=== PATIENT | female | born 1965 | race Two or more races ===

== ENCOUNTER 2016-05-17 05:09 | Emergency (ER) | payer MEDICAID ==
[~2016-05-17] VITALS: Ht 157.5 cm; Wt 130.2 kg
[~2016-05-17 05:09] MED LIST: GAB400C PO; GLIP-115 PO; HYDR-2601 PO; INSUINJ37 SUBCUT; LISI10TA6; LORA1TAB12 PO; METF-312 PO; OMEPRAZOLE 20MG CAPSULES; SIMV-8
[2016-05-17 05:53] LABS: Basophils # (auto) 0.1 uL; Basophils % (auto) 0.6 % (0.0-2.0); DEFINITIVE VIEW TRANSMISSION; Eosinophils # (auto) 1.4 uL; Eosinophils % (auto) 9.6 % (0.0-7.0); Hematocrit 49.1 % (36.0-46.0); Hemoglobin 16.1 g/dL (12.2-16.2); Lymphocytes # (auto) 2.7 uL; Lymphocytes % (auto) 18.3 % (10.0-50.0); Mean Corpuscular Hemoglobin 28.3 pg (28.0-32.0); Mean Corpuscular Hgb Conc. 32.7 g/dL (32.0-36.0); Mean Corpuscular Volume 86.4 fL (80.0-100.0); Mean Platelet Volume 8.9 fL (7.4-10.4); Monocytes # (auto) 1.1 uL; Monocytes % (auto) 7.5 % (0.0-12.0); Neutrophils # (auto) 9.6 uL; Platelet Count (auto) 312 10^3/uL (140-450); Red Cell Distribution Width 15.3 % (11.6-16.0)
[2016-05-17 06:08] LABS: Albumin 3.5 g/dL (3.4-5.0); Anion Gap 10 (5-15); Calcium 8.6 mg/dL (8.5-10.1); Carbon Dioxide 24 mmol/L (21-32); Chloride 107 mmol/L (98-107); Potassium 4.2 mmol/L (3.5-5.1); Sodium 141 mmol/L (136-145)
[2016-05-17 06:12] LABS: Aspartate Aminotransferase 19 U/L (15-37); BUN/Creatinine Ratio 13.9; Blood Urea Nitrogen 11 mg/dL (7-18); GFR African American 98 mL/min; GFR Non-African American 81 mL/min; Glucose 172 mg/dL (74-106)
[2016-05-17 06:16] LABS: Alkaline Phosphatase 151 U/L (45-117); Bilirubin, Total 0.3 mg/dL (0.2-1.0); Total Protein 7.3 g/dL (6.4-8.2)
[2016-05-17] MEDS ORDERED: ALBUTEROL SULF 2.5 MG/0.5ML(0.5%) NEB SOLN HHN STA (06:18)
[2016-05-17] MEDS ORDERED: IPRATROPIUM BROM 0.5 MG/2.5ML INH SOL NEB ONE ×2 (06:30→10:00)
[2016-05-17 09:21] VITALS: BP 122/73
[2016-05-17] MEDS ORDERED: ALBUTEROL SULF 2.5 MG/0.5ML(0.5%) NEB SOLN NEB ONE (10:00)
[2016-05-17] MEDS ORDERED: LEVOFLOXACIN 500MG 100 ML IV ONE (10:00)
== END 2016-05-17 13:38 | disposition home or self-care (01) ==
LOC: EDBD 05:09 → ER 05:15
DX: J44.1 Chronic obstructive pulmonary disease with (acute) exacerbation (principal); F17.210 Nicotine dependence, cigarettes, uncomplicated; E11.9 Type 2 diabetes mellitus without complications; I10 Essential (primary) hypertension; K21.9 Gastro-esophageal reflux disease without esophagitis; E78.5 Hyperlipidemia, unspecified; Z85.9 Personal history of malignant neoplasm, unspecified
CPT/HCPCS: 36415; 71010; 80053; 84484; 85025; 87040; 93005; 94640; 94761; 96365; 99285; J1956

== ENCOUNTER 2016-09-23 05:53 | Emergency (ER) | payer MEDICAID ==
[~2016-09-23] VITALS: Ht 157.5 cm; Wt 123.4 kg
[~2016-09-23 05:53] MED LIST changes: -METF-312 PO; +METF-370 PO
[2016-09-23] MEDS ORDERED: ASPirin 81 mg TAB PO ONE (06:45)
[2016-09-23 07:41] LABS: Basophils # (auto) 0.1 uL; Basophils % (auto) 0.7 % (0.0-2.0); CONDITION Y; DEFINITIVE SEE PRINTOUT; Eosinophils # (auto) 1.2 uL; Eosinophils % (auto) 8.7 % (0.0-7.0); Hemoglobin 17.3 g/dL (12.2-16.2); Lymphocytes # (auto) 2.7 uL; Lymphocytes % (auto) 18.7 % (10.0-50.0); Mean Corpuscular Hemoglobin 28.6 pg (28.0-32.0); Mean Corpuscular Hgb Conc. 33.3 g/dL (32.0-36.0); Mean Corpuscular Volume 86.2 fL (80.0-100.0); Monocytes % (auto) 7.3 % (0.0-12.0); Neutrophils # (auto) 9.2 uL; Neutrophils % (auto) 64.6 % (37.0-80.0); Platelet Count (auto) 293 10^3/uL (140-450); Red Cell Distribution Width 15.5 % (11.6-16.0); SUSPECT SEE PRINTOUT; White Blood Cell 14.2 10^3/uL (4.4-10.8)
[2016-09-23 08:16] LABS: INR 0.97 (0.9-1.15); Partial Thromboplastin Time 22.6 sec (22.64-33.71); Prothrombin Time 10.6 sec (9.37-12.3)
[2016-09-23 08:18] LABS: Albumin 3.4 g/dL (3.4-5.0); Alkaline Phosphatase 126 U/L (45-117); Anion Gap 13 (5-15); Aspartate Aminotransferase 58 U/L (15-37); BUN/Creatinine Ratio 20.8; Bilirubin, Total 0.5 mg/dL (0.2-1.0); Blood Urea Nitrogen 16 mg/dL (7-18); Calcium 8.7 mg/dL (8.5-10.1); Carbon Dioxide 20 mmol/L (21-32); Chloride 102 mmol/L (98-107); GFR African American 101 mL/min; GFR Non-African American 83 mL/min; Glucose 111 mg/dL (74-106); Magnesium 2.1 mg/dL (1.6-2.6); Potassium 3.4 mmol/L (3.5-5.1); Sodium 135 mmol/L (136-145); Total Protein 6.8 g/dL (6.4-8.2)
[2016-09-23 08:31] VITALS: BP 114/72
== END 2016-09-23 08:45 | disposition home or self-care (01) ==
LOC: ER 05:57
DX: R07.89 Other chest pain (principal); E66.01 Morbid (severe) obesity due to excess calories; Z68.42 Body mass index [BMI] 45.0-49.9, adult; K21.9 Gastro-esophageal reflux disease without esophagitis; J44.9 Chronic obstructive pulmonary disease, unspecified; I10 Essential (primary) hypertension; E11.9 Type 2 diabetes mellitus without complications; E78.5 Hyperlipidemia, unspecified; Z90.49 Acquired absence of other specified parts of digestive tract; Z98.51 Tubal ligation status; Z85.41 Personal history of malignant neoplasm of cervix uteri; F17.210 Nicotine dependence, cigarettes, uncomplicated; Z79.4 Long term (current) use of insulin; Z88.0 Allergy status to penicillin; Z88.2 Allergy status to sulfonamides
CPT/HCPCS: 36415; 71020; 80053; 83735; 84484; 85025; 85610; 85730; 93005; 94761

== ENCOUNTER 2020-11-19 05:25 | Emergency (ER) | payer MEDICAID ==
[~2020-11-19] VITALS: Ht 157.5 cm; Wt 109.8 kg
[~2020-11-19 05:25] MED LIST changes: -GLIP-115 PO; +GLIP5TAB12 PO; +LISI-716; -LISI10TA6; -LORA1TAB12 PO; +LORA1TAB23 PO
[2020-11-19 06:49] LABS: Basophils # (auto) 0.1 10 ^3/uL (0-0.2); Basophils % (auto) 1.2 % (0.0-2.0); Eosinophils # (auto) 0.6 10 ^3/uL (0-0.8); Eosinophils % (auto) 4.8 % (0.0-7.0); Hematocrit 43.9 % (36.0-46.0); Hemoglobin 14.8 g/dL (12.2-16.2); Lymphocytes # (auto) 2.1 10 ^3/uL (0.4-5.4); Lymphocytes % (auto) 16.6 % (10.0-50.0); Mean Corpuscular Hemoglobin 29.3 pg (28.0-32.0); Mean Corpuscular Hgb Conc. 33.8 g/dL (32.0-36.0); Mean Corpuscular Volume 86.8 fL (80.0-100.0); Monocytes # (auto) 1.2 10 ^3/uL (0-1.3); Monocytes % (auto) 9.7 % (0.0-12.0); Neutrophils # (auto) 8.6 10 ^3/uL (1.6-8.6); Neutrophils % (auto) 67.7 % (37.0-80.0); Red Blood Cells 5.06 10^6/uL (4.0-5.20); Red Cell Distribution Width 14.3 % (11.8-14.3); White Blood Cell 12.6 10^3/uL (4.4-10.8)
[2020-11-19 07:00] LABS: Albumin 2.8 g/dL (3.4-5.0); Calcium 9.2 mg/dL (8.5-10.1); Potassium 3.9 mmol/L (3.5-5.1)
[2020-11-19 07:01] LABS: BUN/Creatinine Ratio 13.9
[2020-11-19 07:05] LABS: Bilirubin, Total 0.4 mg/dL (0.2-1.0)
[2020-11-19 08:00] VITALS: BP 153/75
== END 2020-11-19 08:28 | disposition home or self-care (01) ==
LOC: ER 05:25
DX: L03.115 Cellulitis of right lower limb (principal); J44.9 Chronic obstructive pulmonary disease, unspecified; E78.5 Hyperlipidemia, unspecified; I10 Essential (primary) hypertension; F17.210 Nicotine dependence, cigarettes, uncomplicated; Z90.49 Acquired absence of other specified parts of digestive tract; Z98.51 Tubal ligation status; Z90.89 Acquired absence of other organs; Z88.0 Allergy status to penicillin; Z88.2 Allergy status to sulfonamides; Z79.4 Long term (current) use of insulin; Z85.41 Personal history of malignant neoplasm of cervix uteri; Z79.899 Other long term (current) drug therapy
CPT/HCPCS: 36415; 80053; 85025; 93971

== ENCOUNTER 2022-10-02 22:26 | Inpatient (IN) | payer MEDICAID ==
[~2022-10-02] VITALS: Ht 154.9 cm; Wt 45.0 kg
[~2022-10-02 22:26] MED LIST changes: -LISI-716; +LISI10TA34; +LORA-1123 PO; -LORA1TAB23 PO; -SIMV-8; +SIMV20TA20
[2022-10-02 23:00] VITALS: PULSE 96; RESP 25; O2SAT 94
[2022-10-02] MEDS ORDERED: IPRATROPIUM BROM 0.5 MG/2.5ML INH SOL NEB ONE (23:00)
[2022-10-02] MEDS ORDERED: ALBUTEROL SULF 2.5 MG/0.5ML(0.5%) NEB SOLN NEB ONE (23:00)
[2022-10-02 23:14] LABS: Basophils # (auto) 0.2 10 ^3/uL (0-0.2); Basophils % (auto) 1.3 % (0.0-2.0); Eosinophils # (auto) 0.5 10 ^3/uL (0-0.8); Eosinophils % (auto) 3.5 % (0.0-7.0); Hematocrit 46.1 % (36.0-46.0); Hemoglobin 15.2 g/dL (12.2-16.2); Lymphocytes # (auto) 2.8 10 ^3/uL (0.4-5.4); Lymphocytes % (auto) 19.7 % (10.0-50.0); Mean Corpuscular Hemoglobin 28.3 pg (28.0-32.0); Mean Corpuscular Hgb Conc. 33.1 g/dL (32.0-36.0); Mean Corpuscular Volume 85.6 fL (80.0-100.0); Monocytes # (auto) 1.4 10 ^3/uL (0-1.3); Monocytes % (auto) 9.8 % (0.0-12.0); Neutrophils # (auto) 9.2 10 ^3/uL (1.6-8.6); Neutrophils % (auto) 65.7 % (37.0-80.0); Nucleated Red Blood Cells % 0.4 %; Red Blood Cells 5.38 10^6/uL (4.0-5.20); Red Cell Distribution Width 15.4 % (11.8-14.3)
[2022-10-02 23:31] LABS: INR 1.07 (0.9-1.15); Prothrombin Time 11.2 sec (9.3-11.8)
[2022-10-02 23:47] LABS: Albumin 3.2 g/dL (3.4-5.0); Calcium 8.4 mg/dL (8.5-10.1); Magnesium 2.2 mg/dL (1.6-2.6); Potassium 3.8 mmol/L (3.5-5.1)
[2022-10-02 23:50] LABS: BUN/Creatinine Ratio 14.1 (10.0-20.0); Bilirubin, Total 0.6 mg/dL (0.2-1.0)
[2022-10-03] VITALS (8 sets, daily range): BP systolic 184; BP diastolic 106; PULSE 80–100; RESP 17–29; TEMP 97.4–98.2; O2SAT 90–97
[2022-10-03] MEDS ORDERED: levoFLOXacin 500MG 100 ML IV ONE
[2022-10-03] MEDS ORDERED: DOCUSATE SOD 100 MG CAP PO PRN (01:30)
[2022-10-03] MEDS ORDERED: NITROGLYCERIN 0.4 MG SL TAB SL PRN (01:30)
[2022-10-03] MEDS ORDERED: MORPHINE SULFATE INJ 2 MG/ml SYRG IV PRN (01:30)
[2022-10-03] MEDS ORDERED: ACETAMINOPHEN 325 MG TAB PO PRN (01:30)
[2022-10-03] MEDS ORDERED: ONDANSETRON HCL 4 MG/2 ML VIAL IV PRN (01:30)
[2022-10-03] MEDS ORDERED: DEXTROSE (50%) 50ML SYRG IV PRN (01:30)
[2022-10-03] MEDS ORDERED: HYDROcodone-ACET 5/325MG TAB PO PRN (01:30)
[2022-10-03 01:48] LABS: COVID19 ANTIGEN SOFIA FIA NEGATIVE (NEGATIVE)
[2022-10-03 01:49] LABS: Rapid Influenza A Negative (Negative); Rapid Influenza B Negative (Negative)
[2022-10-03] MEDS ORDERED: hydrALAZINE HCL 20 MG/ML VL IV PRN (02:00)
[2022-10-03] MEDS ORDERED: amLODIPine BESYLATE 5 MG TAB PO ONE (02:00)
[2022-10-03] MEDS ORDERED: IOHEXOL 350 MG/ML 100ML IJ ONE (02:05)
[2022-10-03] MEDS: SODIUM CHLOR 0.9% PF (SALINE LOCK) 10ML VIAL/SYR IV SCH ×3 (05:40→23:06)
[2022-10-03 06:05] LABS: Basophils # (auto) 0.2 10 ^3/uL (0-0.2); Basophils % (auto) 1.2 % (0.0-2.0); Eosinophils # (auto) 0.4 10 ^3/uL (0-0.8); Eosinophils % (auto) 3.5 % (0.0-7.0); Hematocrit 47.2 % (36.0-46.0); Hemoglobin 15.1 g/dL (12.2-16.2); Lymphocytes # (auto) 1.9 10 ^3/uL (0.4-5.4); Lymphocytes % (auto) 15.5 % (10.0-50.0); Mean Corpuscular Hemoglobin 27.6 pg (28.0-32.0); Mean Corpuscular Hgb Conc. 32.1 g/dL (32.0-36.0); Mean Corpuscular Volume 86.1 fL (80.0-100.0); Monocytes # (auto) 1.3 10 ^3/uL (0-1.3); Monocytes % (auto) 10.7 % (0.0-12.0); Neutrophils # (auto) 8.6 10 ^3/uL (1.6-8.6); Neutrophils % (auto) 69.1 % (37.0-80.0); Red Blood Cells 5.47 10^6/uL (4.0-5.20); Red Cell Distribution Width 15.1 % (11.8-14.3); White Blood Cell 12.5 10^3/uL (4.4-10.8)
[2022-10-03 06:16] LABS: Potassium 3.8 mmol/L (3.5-5.1)
[2022-10-03 06:24] LABS: Albumin 3.2 g/dL (3.4-5.0); BUN/Creatinine Ratio 13.5 (10.0-20.0); Bilirubin, Total 0.8 mg/dL (0.2-1.0); Calcium 8.5 mg/dL (8.5-10.1); Total Protein 6.1 g/dL (6.4-8.2)
[2022-10-03] MEDS: ACCU-CHEK COMFORT CURVE STRIP VI SCH ×4 (07:22→23:17)
[2022-10-03] MEDS: InsuLIN REG 1unit/0.01ml Soln (100units/ml) SC SCH ×3 (07:32→17:13)
[2022-10-03 07:49] LABS: Urine Bacteria FEW /hpf (None Seen); Urine Blood Negative /uL (Negative); Urine Clarity Clear (Clear); Urine Color Yellow (Yellow); Urine Protein, UAD TRACE (Negative); Urine Urobilinogen Normal (Negative); Urine WBC 2 /hpf (0 - 5); Urine pH 6.5 (5.0-8.0)
[2022-10-03] MEDS ORDERED: ASPirin 81 mg TAB PO SCH (10:00)
[2022-10-03] MEDS: FAMOTIDINE (10MG/ML) 2ML VL IV SCH ×2 (10:28→23:04)
[2022-10-03] MEDS ORDERED: METOPROLOL TARTRATE 25 MG TAB PO SCH (13:30)
[2022-10-03 14:11] LABS: Cholesterol 156 mg/dL (< 200); HDL Cholesterol 46 mg/dL (40-59); LDL Cholesterol 97 mg/dL (< 100); Triglycerides 141 mg/dL (< 150)
[2022-10-03] MEDS: IPRATROPIUM BROM 0.5 MG/2.5ML INH SOL NEB PRN (14:19)
[2022-10-03] MEDS: ALBUTEROL SULF 2.5 MG/0.5ML(0.5%) NEB SOLN NEB PRN (14:19)
[2022-10-03] MEDS ORDERED: NICOTINE 21MG/24 HR TOPICAL PATCH TD SCH (15:00)
[2022-10-03] MEDS ORDERED: LABETALOL HCL 5 MG/ML 4ML SYRINGE IV PRN (15:00)
[2022-10-03] MEDS ORDERED: POTASSIUM CHL 20 Meq TABLET PO ONE (15:30)
[2022-10-03] MEDS ORDERED: FUROSEMIDE 20 MG/2 ML VIAL IV SCH (15:30)
[2022-10-03 16:13] LABS: Alcohol, Urine < 3.0 mg/dL (0-10); Amphetamine Screen, Urine POSITIVE (NEGATIVE); Barbiturate Scree,Urine NEGATIVE (NEGATIVE); Benzodiazephine Screen, Urine NEGATIVE (NEGATIVE); Cannabinoid Screen, Urine NEGATIVE (NEGATIVE); Cocaine Screen, Urine NEGATIVE (NEGATIVE)
[2022-10-03 16:21] LABS: Opiate Scree,Urine NEGATIVE (NEGATIVE); Phencyclidine Screen, Urine NEGATIVE (NEGATIVE)
[2022-10-03] MEDS ORDERED: levoFLOXacin 500MG 100 ML IV SCH (22:00)
[2022-10-03] MEDS ORDERED: ATORVASTATIN 20 MG TAB PO SCH (22:00)
[2022-10-03] MEDS ORDERED: CARVEDILOL 12.5 MG TAB PO SCH (22:00)
[2022-10-03] MEDS ORDERED: InsuLIN REG 1unit/0.01ml Soln (100units/ml) SC SCH (22:00)
[2022-10-04] MEDS ORDERED: MELATONIN 5 MG TAB ONE (01:28)
[2022-10-04] MEDS ORDERED: MELATONIN 5 MG TAB PO ONE ×2 (01:45→22:00)
[2022-10-04] MEDS ORDERED: diphenhdrAMINE HCL 50 MG/1 ML VL IV PRN (02:30)
[2022-10-04] MEDS: IPRATROPIUM BROM 0.5 MG/2.5ML INH SOL NEB PRN (02:38)
[2022-10-04] MEDS: ALBUTEROL SULF 2.5 MG/0.5ML(0.5%) NEB SOLN NEB PRN (02:38)
[2022-10-04 02:39] VITALS: PULSE 80; RESP 20; O2SAT 95
[2022-10-04 02:49] VITALS: PULSE 90; RESP 20; O2SAT 95
[2022-10-04 05:17] VITALS: BP 131/95; PULSE 89; RESP 21; O2SAT 95
[2022-10-04] MEDS: SODIUM CHLOR 0.9% PF (SALINE LOCK) 10ML VIAL/SYR IV SCH (06:05)
[2022-10-04 07:07] LABS: Potassium 4.3 mmol/L (3.5-5.1)
[2022-10-04 07:19] LABS: Albumin 3.1 g/dL (3.4-5.0); BUN/Creatinine Ratio 13.8 (10.0-20.0); Bilirubin, Total 0.5 mg/dL (0.2-1.0); Calcium 8.8 mg/dL (8.5-10.1); Total Protein 6.5 g/dL (6.4-8.2)
[2022-10-04 07:31] LABS: Basophils # (auto) 0.3 10 ^3/uL (0-0.2); Basophils % (auto) 2.4 % (0.0-2.0); Eosinophils # (auto) 0.7 10 ^3/uL (0-0.8); Eosinophils % (auto) 5.8 % (0.0-7.0); Hematocrit 46.9 % (36.0-46.0); Hemoglobin 15.3 g/dL (12.2-16.2); Lymphocytes # (auto) 1.9 10 ^3/uL (0.4-5.4); Lymphocytes % (auto) 15.8 % (10.0-50.0); Mean Corpuscular Hemoglobin 28.4 pg (28.0-32.0); Mean Corpuscular Hgb Conc. 32.7 g/dL (32.0-36.0); Mean Corpuscular Volume 86.8 fL (80.0-100.0); Monocytes # (auto) 1.3 10 ^3/uL (0-1.3); Monocytes % (auto) 10.6 % (0.0-12.0); Neutrophils # (auto) 7.9 10 ^3/uL (1.6-8.6); Neutrophils % (auto) 65.4 % (37.0-80.0); Nucleated Red Blood Cells % 0.1 %; Red Cell Distribution Width 14.9 % (11.8-14.3); White Blood Cell 12.1 10^3/uL (4.4-10.8)
[2022-10-04] MEDS ORDERED: amLODIPine BESYLATE 5 MG TAB PO SCH (10:00)
[2022-10-04] MEDS ORDERED: POTASSIUM CHL 20 Meq TABLET PO SCH (10:00)
== END 2022-10-04 07:52 | disposition left against medical advice (07) | DRG 199 ==
LOC: ER 22:26 → EDBD 22:26 → TELE 10-03 01:35
PROVIDERS: ADMIT Nurse Practitioner Family; ATTEND Nurse Practitioner Family
DX: I16.0 Hypertensive urgency (principal); J96.21 Acute and chronic respiratory failure with hypoxia; I21.A1 Myocardial infarction type 2; J44.1 Chronic obstructive pulmonary disease with (acute) exacerbation; E78.00 Pure hypercholesterolemia, unspecified; E66.01 Morbid (severe) obesity due to excess calories; K21.9 Gastro-esophageal reflux disease without esophagitis; E11.9 Type 2 diabetes mellitus without complications; J90 Pleural effusion, not elsewhere classified; I10 Essential (primary) hypertension; Z20.822 Contact with and (suspected) exposure to COVID-19; F17.210 Nicotine dependence, cigarettes, uncomplicated; N39.0 Urinary tract infection, site not specified; F41.9 Anxiety disorder, unspecified; Z68.1 Body mass index [BMI] 19.9 or less, adult; Z85.41 Personal history of malignant neoplasm of cervix uteri; Z80.3 Family history of malignant neoplasm of breast; Z90.49 Acquired absence of other specified parts of digestive tract; Z88.0 Allergy status to penicillin; Z88.2 Allergy status to sulfonamides; Z82.5 Family history of asthma and other chronic lower respiratory diseases; Z82.49 Family history of ischemic heart disease and other diseases of the circulatory system; Z90.13 Acquired absence of bilateral breasts and nipples; Z79.4 Long term (current) use of insulin; Z91.199 Patient's noncompliance with other medical treatment and regimen due to unspecified reason
CPT/HCPCS: 36415; 71275; 80053; 80061; 80307; 81001; 82962; 83036; 83605; 83735; 83880; 84443; 84484; 85025; 85379; 85610; 85730; 87040; 87426; 87804; 93005; 93306; 93970; 94640; G0378; J1815; J1956; J3490

== ENCOUNTER 2022-12-12 22:19 | Inpatient (IN) | payer MEDICAID, MEDICARE, OTHER ==
[~2022-12-12] VITALS: Ht 154.9 cm; Wt 112.4 kg
[2022-12-12 22:45] VITALS: PULSE 147; RESP 28; O2SAT 99
[2022-12-12] MEDS ORDERED: ALBUTEROL MEDNEB 2.5 mg/3ml NEB ONE (23:29)
[2022-12-12] MEDS ORDERED: IPRATROPIUM BROM 0.5 MG/2.5ML INH SOL NEB ONE (23:30)
[2022-12-12] MEDS ORDERED: methylPREDNISolone SOD SUCC 125 MG/2 ML VL IV ONE (23:30)
[2022-12-12] MEDS ORDERED: ALBUTEROL SULF 2.5 MG/0.5ML(0.5%) NEB SOLN NEB ONE (23:30)
[2022-12-12] MEDS ORDERED: LORazepam 2MG/ML-1ML VIAL IV ONE (23:30)
[2022-12-13] VITALS (8 sets, daily range): BP systolic 106–123; BP diastolic 61–78; PULSE 95–106; RESP 24–28; TEMP 98.9; O2SAT 93–96
[2022-12-13] MEDS ORDERED: AZITHROMYCIN 500MG/ 250ML 250 ML IV ONE
[2022-12-13 00:14] LABS: Basophils # (auto) 0.1 10 ^3/uL (0-0.2); Hemoglobin 15.8 g/dL (12.2-16.2); Monocytes # (auto) 1.5 10 ^3/uL (0-1.3); Neutrophils # (auto) 14.6 10 ^3/uL (1.6-8.6)
[2022-12-13 00:15] LABS: Basophils % (auto) 0.7 % (0.0-2.0); Eosinophils # (auto) 0.2 10 ^3/uL (0-0.8); Eosinophils % (auto) 1.2 % (0.0-7.0); Hematocrit 50.3 % (36.0-46.0); Lymphocytes # (auto) 1.8 10 ^3/uL (0.4-5.4); Mean Corpuscular Hgb Conc. 31.4 g/dL (32.0-36.0); Mean Corpuscular Volume 89.1 fL (80.0-100.0); Monocytes % (auto) 8.3 % (0.0-12.0); Neutrophils % (auto) 79.8 % (37.0-80.0); Red Blood Cells 5.64 10^6/uL (4.0-5.20); Red Cell Distribution Width 17.9 % (11.8-14.3); White Blood Cell 18.3 10^3/uL (4.4-10.8)
[2022-12-13 00:27] LABS: Alanine Aminotransferase 33 U/L (7-40); Albumin 3.8 g/dL (3.2-4.8); Alkaline Phosphatase 201 U/L (46-116); Anion Gap 7 (5-15); Aspartate Aminotransferase 21 U/L (13-40); Bilirubin, Total 0.4 mg/dL (0.2-1.0); Blood Urea Nitrogen 14 mg/dL (9-23); Calcium 9.1 mg/dL (8.7-10.4); Carbon Dioxide 28 mmol/L (20-30); Chloride 107 mmol/L (98-107); Glucose 174 mg/dL (74-106); Potassium 4.7 mmol/L (3.5-5.1); Sodium 142 mmol/L (136-145); Total Protein 5.5 g/dL (5.7-8.2)
[2022-12-13] MEDS ORDERED: FUROSEMIDE 100 MG/10ML VIAL IV ONE (00:45)
[2022-12-13] MEDS ORDERED: LORazepam 2MG/ML-1ML VIAL IV ONE (02:15)
[2022-12-13] MEDS ORDERED: IPRATROPIUM BROM 0.5 MG/2.5ML INH SOL NEB PRN (03:30)
[2022-12-13] MEDS ORDERED: MORPHINE SULFATE INJ 2 MG/ml SYRG IV PRN (03:30)
[2022-12-13] MEDS ORDERED: DEXTROSE (50%) 50ML SYRG IV PRN (03:30)
[2022-12-13] MEDS ORDERED: NITROGLYCERIN 0.4 MG SL TAB SL PRN (03:30)
[2022-12-13] MEDS ORDERED: ALBUTEROL SULF 2.5 MG/0.5ML(0.5%) NEB SOLN NEB PRN (03:30)
[2022-12-13 03:47] LABS: Urine Bacteria NONE SEEN /hpf (None Seen); Urine Blood Negative /uL (Negative); Urine Clarity Clear (Clear); Urine Color Colorless (Yellow); Urine Hyaline Cast FEW /lpf (0 - 2); Urine Mucus FEW (None Seen); Urine Protein, UAD Negative (Negative); Urine Specific Gravity 1.008 (1.001-1.035); Urine Urobilinogen Normal (Negative); Urine WBC 10 /hpf (0 - 5); Urine pH 5.5 (5.0-8.0)
[2022-12-13 04:25] LABS: COVID19 ANTIGEN SOFIA FIA NEGATIVE (NEGATIVE)
[2022-12-13 06:39] LABS: Amphetamine Screen, Urine Pos (NEGATIVE); Barbiturate Scree,Urine Neg (NEGATIVE); Benzodiazephine Screen, Urine Neg (NEGATIVE); Cannabinoid Screen, Urine Neg (NEGATIVE); Cocaine Screen, Urine Neg (NEGATIVE); Opiate Scree,Urine Neg (NEGATIVE); Phencyclidine Screen, Urine Neg (NEGATIVE)
[2022-12-13] MEDS: ACCU-CHEK COMFORT CURVE STRIP VI SCH ×4 (06:44→22:14)
[2022-12-13] MEDS: InsuLIN REG 1unit/0.01ml Soln (100units/ml) SC SCH ×4 (06:46→22:48)
[2022-12-13 07:30] LABS: Base Excess 2.3 mmol/L (-2.0-2.0)
[2022-12-13] MEDS ORDERED: METOPROLOL TARTRATE 1MG/1ML-5ML VIAL IV SCH (08:19)
[2022-12-13] MEDS ORDERED: DIGOXIN (250MCG/ML) 2 ML AMPULE IV ONE ×3 (08:30→20:30)
[2022-12-13] MEDS: FUROSEMIDE 20 MG/2 ML VIAL IV SCH (09:14)
[2022-12-13] MEDS ORDERED: ENOXAPARIN SOD 40 MG/0.4 ML SYRINGE SC SCH (10:00)
[2022-12-13] MEDS ORDERED: AMIODARONE BOLUS KIT 100 ML IV ONE (11:15)
[2022-12-13] MEDS ORDERED: AMIODARONE 450mg/250ml AE 250 ML IV SCH ×2 (11:30→17:30)
[2022-12-13] MEDS ORDERED: ENOXAPARIN SOD 60 MG/0.6 ML SYRINGE SC ONE (11:45)
[2022-12-13 11:47] LABS: Triglycerides 47 mg/dL (< 150)
[2022-12-13 11:48] LABS: LDL Cholesterol 40 mg/dL (< 100)
[2022-12-13 11:49] LABS: Cholesterol 85 mg/dL (< 200); HDL Cholesterol 32 mg/dL (40-59)
[2022-12-13] MEDS ORDERED: IOHEXOL 350 MG/ML 100ML IJ ONE (12:12)
[2022-12-13] MEDS: ASPirin 81 mg TAB PO SCH (12:14)
[2022-12-13] MEDS: DOXYCYCLINE 100MG/250ML 250 ML IV SCH (15:45)
[2022-12-13] MEDS ORDERED: KETOROLAC TROMETH 30 MG/ML 1ML VIAL IV ONE (18:15)
[2022-12-13] MEDS ORDERED: ENOXAPARIN SOD 100 MG/1 ML SYRINGE SC SCH (22:00)
[2022-12-13] MEDS ORDERED: CEFEPIME 2GM/50ML NS 50 ML IV SCH (22:00)
[2022-12-13] MEDS ORDERED: PIPERACILLIN-TAZOB 3.375GM 100 ML IV SCH (22:00)
[2022-12-13] MEDS: ENOXAPARIN SOD 100 MG/1 ML SYRINGE SC SCH (22:46)
[2022-12-13] MEDS: ATORVASTATIN 20 MG TAB PO SCH (22:46)
[2022-12-13] MEDS ORDERED: cefTRIAXone 1GM/50ML D5W 50 ML IV SCH (23:00)
[2022-12-13] MEDS: ACETAMINOPHEN 325 MG TAB PO PRN (23:11)
[2022-12-13] MEDS ORDERED: cefTRIAXone 1GM/50ML D5W 50 ML IV ONE ×2 (23:45)
[2022-12-14] VITALS (8 sets, daily range): BP systolic 105–151; BP diastolic 55–76; PULSE 63–97; RESP 16–20; TEMP 97.7–98.6; O2SAT 90–96
[2022-12-14] MEDS ORDERED: cefTRIAXone 1GM/50ML D5W 50 ML IV SCH (01:00)
[2022-12-14] MEDS ORDERED: AZITHROMYCIN 500MG/ 250ML 250 ML IV SCH (02:00)
[2022-12-14] MEDS ORDERED: HYDROcodone-ACET 5/325MG TAB PO ONE (02:15)
[2022-12-14] MEDS ORDERED: ALBUTEROL MEDNEB 2.5 mg/3ml NEB ONE (06:11)
[2022-12-14] MEDS: InsuLIN REG 1unit/0.01ml Soln (100units/ml) SC SCH ×4 (07:00→22:18)
[2022-12-14] MEDS: ACCU-CHEK COMFORT CURVE STRIP VI SCH ×4 (07:02→22:08)
[2022-12-14] MEDS: DOXYCYCLINE 100MG/250ML 250 ML IV SCH ×2 (07:24→20:15)
[2022-12-14] MEDS ORDERED: VANCOMYCIN 1GM/250ML 250 ML IV ONE (07:45)
[2022-12-14] MEDS ORDERED: VANCOMYCIN PER PHARMACY 0 MG IV SCH (07:45)
[2022-12-14 07:46] LABS: Alanine Aminotransferase 26 U/L (7-40); Albumin 3.7 g/dL (3.2-4.8); Alkaline Phosphatase 166 U/L (46-116); Anion Gap 4 (5-15); Aspartate Aminotransferase 26 U/L (13-40); Blood Urea Nitrogen 14 mg/dL (9-23); Calcium 8.8 mg/dL (8.5-10.1); Carbon Dioxide 32 mmol/L (20-30); Chloride 103 mmol/L (98-107); Glucose 113 mg/dL (74-106); Potassium 5.3 mmol/L (3.5-5.1); Sodium 139 mmol/L (136-145)
[2022-12-14 07:47] LABS: Bilirubin, Total 0.7 mg/dL (0.2-1.0); Total Protein 5.5 g/dL (5.7-8.2)
[2022-12-14] MEDS ORDERED: ALBUTEROL MEDNEB 2.5 mg/3ml NEB NEB PRN (08:30)
[2022-12-14] MEDS ORDERED: DEXTROSE (50%) 50ML SYRG IV ONE (08:45)
[2022-12-14] MEDS ORDERED: InsuLIN REG 1unit/0.01ml Soln (100units/ml) IV ONE (08:45)
[2022-12-14] MEDS ORDERED: SODIUM BICARBONATE 8.4% INJ 50ML SYRINGE IV ONE (08:45)
[2022-12-14] MEDS ORDERED: ALBUTEROL MEDNEB 2.5 mg/3ml NEB NEB ONE (09:00)
[2022-12-14] MEDS ORDERED: ALBU108A5 PO (09:40)
[2022-12-14] MEDS ORDERED: ALPR0.5T7 PO (09:58)
[2022-12-14] MEDS: ASPirin 81 mg TAB PO SCH (10:13)
[2022-12-14] MEDS: CEFEPIME 2GM/50ML NS 50 ML IV SCH ×2 (10:15→20:16)
[2022-12-14] MEDS: ENOXAPARIN SOD 100 MG/1 ML SYRINGE SC SCH ×2 (10:15→22:08)
[2022-12-14] MEDS: AMIODARONE HCL 200 MG TAB PO SCH ×2 (10:15→22:08)
[2022-12-14] MEDS ORDERED: SODIUM ZIRCONIUM CYCL 10 GM PAK PO ONE (12:30)
[2022-12-14] MEDS: FUROSEMIDE 20 MG/2 ML VIAL IV SCH (13:10)
[2022-12-14] MEDS: ONDANSETRON HCL 4 MG/2 ML VIAL IV PRN (13:22)
[2022-12-14] MEDS: MAGNESIUM SULFATE 1GM/100ML 100 ML IV SCH ×3 (13:40→18:56)
[2022-12-14 14:13] LABS: Basophils # (auto) 0.1 10 ^3/uL (0-0.2); Basophils % (auto) 0.5 % (0.0-2.0); Eosinophils # (auto) 0.2 10 ^3/uL (0-0.8); Hematocrit 47.5 % (36.0-46.0); Hemoglobin 15.7 g/dL (12.2-16.2); Lymphocytes % (auto) 9.7 % (10.0-50.0); Mean Corpuscular Hemoglobin 29.1 pg (28.0-32.0); Mean Corpuscular Hgb Conc. 33.1 g/dL (32.0-36.0); Mean Corpuscular Volume 87.8 fL (80.0-100.0); Monocytes # (auto) 2.4 10 ^3/uL (0-1.3); Monocytes % (auto) 11.6 % (0.0-12.0); Neutrophils # (auto) 15.9 10 ^3/uL (1.6-8.6); Neutrophils % (auto) 77.2 % (37.0-80.0); Nucleated Red Blood Cells % 0.1 %; Red Blood Cells 5.41 10^6/uL (4.0-5.20); Red Cell Distribution Width 17.1 % (11.8-14.3); White Blood Cell 20.6 10^3/uL (4.4-10.8)
[2022-12-14 15:38] LABS: Platelet Estimate Adequate
[2022-12-14 20:14] LABS: Chloride 101 mmol/L (98-107); Potassium 4.5 mmol/L (3.5-5.1); Sodium 141 mmol/L (136-145)
[2022-12-14 20:15] LABS: Anion Gap 6 (5-15); Calcium 8.6 mg/dL (8.5-10.1); Carbon Dioxide 34 mmol/L (20-30)
[2022-12-14 20:20] LABS: BUN/Creatinine Ratio 10.8 (10.0-20.0); Blood Urea Nitrogen 14 mg/dL (9-23); Glucose 208 mg/dL (74-106)
[2022-12-14] MEDS: VANCOMYCIN 1GM/250ML 250 ML IV SCH (22:06)
[2022-12-14] MEDS: ATORVASTATIN 20 MG TAB PO SCH (22:07)
[2022-12-15] VITALS (10 sets, daily range): BP systolic 123–136; BP diastolic 60–77; PULSE 62–87; RESP 16–19; TEMP 97.1–98; O2SAT 93–99
[2022-12-15] MEDS ORDERED: HYDROcodone-ACET 5/325MG TAB PO PRN (00:15)
[2022-12-15] MEDS: CEFEPIME 2GM/50ML NS 50 ML IV SCH ×3 (03:47→20:00)
[2022-12-15] MEDS: ACETAMINOPHEN 325 MG TAB PO PRN (06:25)
[2022-12-15] MEDS: ACCU-CHEK COMFORT CURVE STRIP VI SCH ×4 (06:25→22:00)
[2022-12-15] MEDS: InsuLIN REG 1unit/0.01ml Soln (100units/ml) SC SCH ×4 (06:28→21:56)
[2022-12-15] MEDS: DOXYCYCLINE 100MG/250ML 250 ML IV SCH ×2 (08:23→20:00)
[2022-12-15] MEDS: ASPirin 81 mg TAB PO SCH (09:40)
[2022-12-15] MEDS: AMIODARONE HCL 200 MG TAB PO SCH ×2 (09:42→21:51)
[2022-12-15] MEDS: VANCOMYCIN 1GM/250ML 250 ML IV SCH ×2 (09:42→22:00)
[2022-12-15] MEDS: FUROSEMIDE 20 MG/2 ML VIAL IV SCH (09:42)
[2022-12-15] MEDS: ENOXAPARIN SOD 100 MG/1 ML SYRINGE SC SCH (09:43)
[2022-12-15 10:47] LABS: Alanine Aminotransferase 25 U/L (7-40); Alkaline Phosphatase 155 U/L (46-116); Calcium 8.6 mg/dL (8.7-10.4)
[2022-12-15 10:48] LABS: Albumin 3.7 g/dL (3.2-4.8); Anion Gap 2 (5-15); Aspartate Aminotransferase 22 U/L (13-40); BUN/Creatinine Ratio 12.7 (10.0-20.0); Bilirubin, Total 0.4 mg/dL (0.2-1.0); Blood Urea Nitrogen 13 mg/dL (9-23); Carbon Dioxide 35 mmol/L (20-30); Chloride 100 mmol/L (98-107); Glucose 222 mg/dL (74-106); Potassium 4.5 mmol/L (3.5-5.1); Sodium 137 mmol/L (136-145); Total Protein 5.7 g/dL (5.7-8.2)
[2022-12-15 11:00] LABS: Basophils # (auto) 0.2 10 ^3/uL (0-0.2); Basophils % (auto) 1.2 % (0.0-2.0); Eosinophils # (auto) 0.4 10 ^3/uL (0-0.8); Eosinophils % (auto) 2.8 % (0.0-7.0); Hematocrit 49.4 % (36.0-46.0); Hemoglobin 15.2 g/dL (12.2-16.2); Lymphocytes # (auto) 1.6 10 ^3/uL (0.4-5.4); Lymphocytes % (auto) 12.3 % (10.0-50.0); Mean Corpuscular Hemoglobin 27.5 pg (28.0-32.0); Mean Corpuscular Hgb Conc. 30.7 g/dL (32.0-36.0); Mean Corpuscular Volume 89.5 fL (80.0-100.0); Monocytes # (auto) 1.5 10 ^3/uL (0-1.3); Monocytes % (auto) 11.3 % (0.0-12.0); Neutrophils # (auto) 9.6 10 ^3/uL (1.6-8.6); Neutrophils % (auto) 72.4 % (37.0-80.0); Nucleated Red Blood Cells % 0.1 %; Red Blood Cells 5.52 10^6/uL (4.0-5.20); Red Cell Distribution Width 17.7 % (11.8-14.3); White Blood Cell 13.2 10^3/uL (4.4-10.8)
[2022-12-15 11:33] LABS: Platelet Estimate Adequate
[2022-12-15] MEDS: traMADol HCL 50 MG TAB PO PRN (12:44)
[2022-12-15] MEDS: ONDANSETRON HCL 4 MG/2 ML VIAL IV PRN (12:45)
[2022-12-15] MEDS: GABAPENTIN 400 MG CAP PO SCH ×2 (14:24→21:50)
[2022-12-15] MEDS: CARVEDILOL 3.125 MG TAB PO SCH (21:50)
[2022-12-15] MEDS: ATORVASTATIN 20 MG TAB PO SCH (21:50)
[2022-12-15] MEDS: SACUBITRIL-VALSARTAN 24mg/26mg TAB PO SCH (21:50)
[2022-12-15] MEDS: APIXABAN 5 MG TAB PO SCH (22:00)
[2022-12-16] MEDS: CEFEPIME 2GM/50ML NS 50 ML IV SCH ×3 (04:00→20:28)
[2022-12-16] MEDS: InsuLIN REG 1unit/0.01ml Soln (100units/ml) SC SCH ×4 (06:05→21:57)
[2022-12-16] MEDS: EMPAGLIFLOZIN 10 MG TAB PO SCH (06:09)
[2022-12-16] MEDS: GABAPENTIN 400 MG CAP PO SCH ×2 (06:17→14:36)
[2022-12-16] MEDS: ACCU-CHEK COMFORT CURVE STRIP VI SCH ×4 (06:28→21:56)
[2022-12-16 08:00] VITALS: BP 156/88; PULSE 79; PULSE 83; RESP 18; TEMP 98.9; O2SAT 94
[2022-12-16 09:27] VITALS: BP 156/88; PULSE 79; RESP 18; TEMP 98.9; O2SAT 94
[2022-12-16] MEDS: DOXYCYCLINE 100MG/250ML 250 ML IV SCH ×2 (09:39→20:28)
[2022-12-16] MEDS: VANCOMYCIN 1GM/250ML 250 ML IV SCH ×2 (09:39→23:12)
[2022-12-16] MEDS: CARVEDILOL 3.125 MG TAB PO SCH ×2 (09:40→21:55)
[2022-12-16] MEDS: SPIRONOLACTONE 25 MG TAB PO SCH (09:40)
[2022-12-16] MEDS: AMIODARONE HCL 200 MG TAB PO SCH ×2 (09:40→21:56)
[2022-12-16] MEDS: SACUBITRIL-VALSARTAN 24mg/26mg TAB PO SCH ×2 (09:40→21:55)
[2022-12-16] MEDS: FUROSEMIDE 20 MG/2 ML VIAL IV SCH (09:40)
[2022-12-16] MEDS: APIXABAN 5 MG TAB PO SCH ×2 (09:54→21:55)
[2022-12-16 10:20] LABS: Chloride 101 mmol/L (98-107); Potassium 4.9 mmol/L (3.5-5.1); Sodium 142 mmol/L (136-145)
[2022-12-16 10:21] LABS: Anion Gap 4 (5-15); Calcium 8.6 mg/dL (8.5-10.1); Carbon Dioxide 37 mmol/L (20-30)
[2022-12-16 10:26] LABS: BUN/Creatinine Ratio 15.7 (10.0-20.0); Blood Urea Nitrogen 14 mg/dL (9-23); Glucose 165 mg/dL (74-106)
[2022-12-16] MEDS ORDERED: ALPRAZolam 0.25 MG TAB PO PRN (10:30)
[2022-12-16] MEDS ORDERED: IPRATROPIUM BROM 0.5 MG/2.5ML INH SOL NEB PRN (10:30)
[2022-12-16] MEDS ORDERED: ALBUTEROL MEDNEB 2.5 mg/3ml NEB NEB PRN (11:00)
[2022-12-16 12:27] VITALS: BP 119/68; PULSE 82; RESP 18; TEMP 98.3; O2SAT 90
[2022-12-16 13:42] LABS: Basophils # (auto) 0.1 10 ^3/uL (0-0.2); Eosinophils # (auto) 0.4 10 ^3/uL (0-0.8); Eosinophils % (auto) 3.3 % (0.0-7.0); Hematocrit 49.7 % (36.0-46.0); Hemoglobin 15.6 g/dL (12.2-16.2); Lymphocytes # (auto) 1.3 10 ^3/uL (0.4-5.4); Lymphocytes % (auto) 10.8 % (10.0-50.0); Mean Corpuscular Hemoglobin 27.8 pg (28.0-32.0); Mean Corpuscular Hgb Conc. 31.4 g/dL (32.0-36.0); Mean Corpuscular Volume 88.4 fL (80.0-100.0); Monocytes # (auto) 1.2 10 ^3/uL (0-1.3); Neutrophils # (auto) 9.2 10 ^3/uL (1.6-8.6); Neutrophils % (auto) 74.9 % (37.0-80.0); Nucleated Red Blood Cells % 0.1 %; Red Blood Cells 5.62 10^6/uL (4.0-5.20); Red Cell Distribution Width 17.2 % (11.8-14.3); White Blood Cell 12.2 10^3/uL (4.4-10.8)
[2022-12-16] MEDS: traMADol HCL 50 MG TAB PO PRN (14:36)
[2022-12-16 16:26] VITALS: BP 123/72; PULSE 83; RESP 18; TEMP 98.3; O2SAT 90
[2022-12-16 19:25] VITALS: O2SAT 98
[2022-12-16 20:00] VITALS: BP 161/72; PULSE 78; PULSE 80; RESP 18; TEMP 97.9; O2SAT 94
[2022-12-16] MEDS: ATORVASTATIN 20 MG TAB PO SCH (21:55)
[2022-12-16] MEDS: GABAPENTIN 300 MG CAP PO SCH (21:55)
[2022-12-17] VITALS (14 sets, daily range): BP systolic 116–158; BP diastolic 60–98; PULSE 61–84; RESP 18–22; TEMP 97.9–98.4; O2SAT 92–100
[2022-12-17] MEDS: CEFEPIME 2GM/50ML NS 50 ML IV SCH ×3 (04:33→23:02)
[2022-12-17] MEDS: ONDANSETRON HCL 4 MG/2 ML VIAL IV PRN (06:37)
[2022-12-17] MEDS: EMPAGLIFLOZIN 10 MG TAB PO SCH (06:37)
[2022-12-17] MEDS: ACCU-CHEK COMFORT CURVE STRIP VI SCH ×4 (06:38→21:40)
[2022-12-17] MEDS: InsuLIN REG 1unit/0.01ml Soln (100units/ml) SC SCH ×4 (06:38→21:53)
[2022-12-17] MEDS: GABAPENTIN 300 MG CAP PO SCH ×3 (06:38→21:39)
[2022-12-17 06:53] LABS: Chloride 100 mmol/L (98-107); Sodium 140 mmol/L (136-145)
[2022-12-17 06:54] LABS: Anion Gap 2 (5-15); Basophils # (auto) 0 10 ^3/uL (0-0.2); Basophils % (auto) 0.3 % (0.0-2.0); Calcium 8.9 mg/dL (8.5-10.1); Carbon Dioxide 38 mmol/L (20-30); Eosinophils # (auto) 0.6 10 ^3/uL (0-0.8); Eosinophils % (auto) 4.8 % (0.0-7.0); Hemoglobin 15.5 g/dL (12.2-16.2); Lymphocytes # (auto) 1.4 10 ^3/uL (0.4-5.4); Lymphocytes % (auto) 10.9 % (10.0-50.0); Mean Corpuscular Hemoglobin 27.6 pg (28.0-32.0); Mean Corpuscular Hgb Conc. 31.6 g/dL (32.0-36.0); Mean Corpuscular Volume 87.3 fL (80.0-100.0); Monocytes # (auto) 1.7 10 ^3/uL (0-1.3); Monocytes % (auto) 13.2 % (0.0-12.0); Neutrophils # (auto) 9.3 10 ^3/uL (1.6-8.6); Neutrophils % (auto) 70.8 % (37.0-80.0); Nucleated Red Blood Cells % 0.1 %; Red Blood Cells 5.61 10^6/uL (4.0-5.20); Red Cell Distribution Width 16.6 % (11.8-14.3); White Blood Cell 13.2 10^3/uL (4.4-10.8)
[2022-12-17 06:59] LABS: BUN/Creatinine Ratio 14.5 (10.0-20.0); Blood Urea Nitrogen 12 mg/dL (9-23); Glucose 126 mg/dL (74-106)
[2022-12-17 08:50] LABS: Base Excess 6.9 mmol/L (-2.0-2.0)
[2022-12-17] MEDS: DOXYCYCLINE 100MG/250ML 250 ML IV SCH ×2 (08:51→19:52)
[2022-12-17] MEDS: IPRATROPIUM BROM 0.5 MG/2.5ML INH SOL NEB SCH ×3 (10:00→19:16)
[2022-12-17] MEDS: ALBUTEROL MEDNEB 2.5 mg/3ml NEB NEB SCH ×3 (10:00→19:16)
[2022-12-17] MEDS: AMIODARONE HCL 200 MG TAB PO SCH ×2 (10:59→21:39)
[2022-12-17] MEDS: APIXABAN 5 MG TAB PO SCH ×2 (10:59→21:39)
[2022-12-17] MEDS: SACUBITRIL-VALSARTAN 24mg/26mg TAB PO SCH ×2 (10:59→21:40)
[2022-12-17] MEDS: SPIRONOLACTONE 25 MG TAB PO SCH (11:00)
[2022-12-17] MEDS: FUROSEMIDE 20 MG/2 ML VIAL IV SCH (11:00)
[2022-12-17] MEDS: CARVEDILOL 3.125 MG TAB PO SCH ×2 (11:00→21:40)
[2022-12-17] MEDS: VANCOMYCIN 1GM/250ML 250 ML IV SCH ×2 (11:01→21:54)
[2022-12-17 11:28] LABS: Base Excess 7.4 mmol/L (-2.0-2.0)
[2022-12-17] MEDS ORDERED: ALBUTEROL MEDNEB 2.5 mg/3ml NEB NEB SCH (12:00)
[2022-12-17] MEDS ORDERED: IPRATROPIUM BROM 0.5 MG/2.5ML INH SOL NEB SCH (12:00)
[2022-12-17] MEDS: ATORVASTATIN 20 MG TAB PO SCH (21:39)
[2022-12-18] VITALS (18 sets, daily range): BP systolic 118–170; BP diastolic 68–149; PULSE 63–94; RESP 16–24; TEMP 98.1–98.6; O2SAT 89–99
[2022-12-18] MEDS: GABAPENTIN 300 MG CAP PO SCH ×3 (06:26→23:20)
[2022-12-18] MEDS: EMPAGLIFLOZIN 10 MG TAB PO SCH (06:26)
[2022-12-18] MEDS: ACCU-CHEK COMFORT CURVE STRIP VI SCH ×2 (06:27→23:13)
[2022-12-18] MEDS: CEFEPIME 2GM/50ML NS 50 ML IV SCH ×2 (06:27→14:00)
[2022-12-18] MEDS: InsuLIN REG 1unit/0.01ml Soln (100units/ml) SC SCH ×4 (06:34→23:13)
[2022-12-18] MEDS: IPRATROPIUM BROM 0.5 MG/2.5ML INH SOL NEB SCH ×4 (07:42→19:06)
[2022-12-18] MEDS: ALBUTEROL MEDNEB 2.5 mg/3ml NEB NEB SCH ×4 (07:42→19:06)
[2022-12-18] MEDS: DOXYCYCLINE 100MG/250ML 250 ML IV SCH ×2 (08:50→21:18)
[2022-12-18] MEDS: SPIRONOLACTONE 25 MG TAB PO SCH (09:04)
[2022-12-18] MEDS: FUROSEMIDE 20 MG/2 ML VIAL IV SCH (09:06)
[2022-12-18] MEDS: AMIODARONE HCL 200 MG TAB PO SCH ×2 (09:07→21:55)
[2022-12-18] MEDS: CARVEDILOL 3.125 MG TAB PO SCH ×2 (09:08→23:20)
[2022-12-18] MEDS: APIXABAN 5 MG TAB PO SCH ×2 (09:09→21:55)
[2022-12-18] MEDS: SACUBITRIL-VALSARTAN 24mg/26mg TAB PO SCH ×2 (09:10→21:56)
[2022-12-18] MEDS: VANCOMYCIN 1GM/250ML 250 ML IV SCH (11:55)
[2022-12-18 12:18] LABS: Basophils # (auto) 0.2 10 ^3/uL (0-0.2); Basophils % (auto) 1.1 % (0.0-2.0); Eosinophils # (auto) 0.7 10 ^3/uL (0-0.8); Eosinophils % (auto) 4.6 % (0.0-7.0); Hematocrit 50.2 % (36.0-46.0); Hemoglobin 15.8 g/dL (12.2-16.2); Lymphocytes # (auto) 1.7 10 ^3/uL (0.4-5.4); Mean Corpuscular Hemoglobin 27.7 pg (28.0-32.0); Mean Corpuscular Hgb Conc. 31.5 g/dL (32.0-36.0); Monocytes # (auto) 2.4 10 ^3/uL (0-1.3); Neutrophils # (auto) 10.8 10 ^3/uL (1.6-8.6); Neutrophils % (auto) 68.3 % (37.0-80.0); Nucleated Red Blood Cells % 0.1 %; Red Blood Cells 5.71 10^6/uL (4.0-5.20); Red Cell Distribution Width 17.4 % (11.8-14.3); White Blood Cell 15.9 10^3/uL (4.4-10.8)
[2022-12-18 12:35] LABS: Chloride 99 mmol/L (98-107); Potassium 4.5 mmol/L (3.5-5.1); Sodium 139 mmol/L (136-145)
[2022-12-18 12:36] LABS: Anion Gap 4 (5-15); Calcium 9.3 mg/dL (8.7-10.4); Carbon Dioxide 36 mmol/L (20-30)
[2022-12-18 12:41] LABS: BUN/Creatinine Ratio 12.6 (10.0-20.0); Blood Urea Nitrogen 11 mg/dL (9-23); Glucose 160 mg/dL (74-106)
[2022-12-18 13:45] LABS: Base Excess 7.5 mmol/L (-2.0-2.0)
[2022-12-18] MEDS: ATORVASTATIN 20 MG TAB PO SCH (23:20)
[2022-12-19] VITALS (13 sets, daily range): BP systolic 124–142; BP diastolic 65–106; PULSE 50–98; RESP 16–22; TEMP 97.4–98.3; O2SAT 91–99
[2022-12-19] MEDS: VANCOMYCIN 1GM/250ML 250 ML IV SCH ×3 (00:27→23:53)
[2022-12-19] MEDS: CEFEPIME 2GM/50ML NS 50 ML IV SCH ×4 (01:08→21:46)
[2022-12-19] MEDS: ALBUTEROL MEDNEB 2.5 mg/3ml NEB NEB SCH ×4 (01:51→19:20)
[2022-12-19] MEDS: IPRATROPIUM BROM 0.5 MG/2.5ML INH SOL NEB SCH ×4 (01:51→19:21)
[2022-12-19] MEDS: EMPAGLIFLOZIN 10 MG TAB PO SCH (06:31)
[2022-12-19] MEDS: GABAPENTIN 300 MG CAP PO SCH ×3 (06:31→21:45)
[2022-12-19] MEDS: ACCU-CHEK COMFORT CURVE STRIP VI SCH ×4 (06:31→21:39)
[2022-12-19] MEDS: InsuLIN REG 1unit/0.01ml Soln (100units/ml) SC SCH ×4 (06:34→21:51)
[2022-12-19] MEDS: DOXYCYCLINE 100MG/250ML 250 ML IV SCH ×2 (08:43→14:23)
[2022-12-19] MEDS: APIXABAN 5 MG TAB PO SCH ×2 (08:43→21:46)
[2022-12-19] MEDS: SPIRONOLACTONE 25 MG TAB PO SCH (08:44)
[2022-12-19] MEDS: AMIODARONE HCL 200 MG TAB PO SCH ×2 (10:00→21:46)
[2022-12-19] MEDS: CARVEDILOL 3.125 MG TAB PO SCH ×2 (10:00→21:46)
[2022-12-19] MEDS ORDERED: diphenhdrAMINE HCL 50 MG/1 ML VL IV PRN (10:00)
[2022-12-19] MEDS: FUROSEMIDE 20 MG/2 ML VIAL IV SCH (10:00)
[2022-12-19] MEDS: SACUBITRIL-VALSARTAN 24mg/26mg TAB PO SCH ×2 (10:00→21:46)
[2022-12-19] MEDS ORDERED: IPRATROPIUM BROM 0.5 MG/2.5ML INH SOL NEB SCH (10:30)
[2022-12-19] MEDS ORDERED: ALBUTEROL MEDNEB 2.5 mg/3ml NEB NEB SCH (10:30)
[2022-12-19 10:41] LABS: Base Excess 3.4 mmol/L (-2.0-2.0)
[2022-12-19 11:09] LABS: Basophils # (auto) 0.2 10 ^3/uL (0-0.2); Mean Corpuscular Hemoglobin 27.9 pg (28.0-32.0); Monocytes # (auto) 1.6 10 ^3/uL (0-1.3); Neutrophils # (auto) 10.8 10 ^3/uL (1.6-8.6)
[2022-12-19 11:12] LABS: Basophils % (auto) 1.4 % (0.0-2.0); Eosinophils # (auto) 0.9 10 ^3/uL (0-0.8); Eosinophils % (auto) 5.9 % (0.0-7.0); Hematocrit 52.8 % (36.0-46.0); Hemoglobin 16.9 g/dL (12.2-16.2); Lymphocytes # (auto) 1.4 10 ^3/uL (0.4-5.4); Lymphocytes % (auto) 9.4 % (10.0-50.0); Mean Corpuscular Hgb Conc. 32.1 g/dL (32.0-36.0); Mean Corpuscular Volume 86.9 fL (80.0-100.0); Monocytes % (auto) 10.5 % (0.0-12.0); Neutrophils % (auto) 72.8 % (37.0-80.0); Nucleated Red Blood Cells % 0.2 %; Red Blood Cells 6.08 10^6/uL (4.0-5.20); Red Cell Distribution Width 16.8 % (11.8-14.3); White Blood Cell 14.8 10^3/uL (4.4-10.8)
[2022-12-19 11:17] LABS: Anion Gap 4 (5-15); Carbon Dioxide 34 mmol/L (20-30); Chloride 103 mmol/L (98-107); Potassium 4.7 mmol/L (3.5-5.1); Sodium 141 mmol/L (136-145)
[2022-12-19 11:18] LABS: Calcium 9.5 mg/dL (8.5-10.1)
[2022-12-19 11:22] LABS: Glucose 183 mg/dL (74-106)
[2022-12-19 11:23] LABS: Blood Urea Nitrogen 12 mg/dL (9-23)
[2022-12-19 13:19] LABS: BUN/Creatinine Ratio 15.6 (10.0-20.0)
[2022-12-19] MEDS ORDERED: IPRATROPIUM BROM 0.5 MG/2.5ML INH SOL NEB PRN (13:30)
[2022-12-19] MEDS ORDERED: ALBUTEROL MEDNEB 2.5 mg/3ml NEB NEB PRN (14:00)
[2022-12-19] MEDS: ATORVASTATIN 20 MG TAB PO SCH (21:46)
[2022-12-20] VITALS (14 sets, daily range): BP systolic 101–156; BP diastolic 47–94; PULSE 57–102; RESP 16–22; TEMP 36.8; O2SAT 90–100
[2022-12-20] MEDS: IPRATROPIUM BROM 0.5 MG/2.5ML INH SOL NEB SCH ×5 (00:20→23:49)
[2022-12-20] MEDS: ALBUTEROL MEDNEB 2.5 mg/3ml NEB NEB SCH ×5 (00:20→23:49)
[2022-12-20] MEDS: CEFEPIME 2GM/50ML NS 50 ML IV SCH (06:00)
[2022-12-20] MEDS: InsuLIN REG 1unit/0.01ml Soln (100units/ml) SC SCH ×4 (07:00→21:48)
[2022-12-20] MEDS: ACCU-CHEK COMFORT CURVE STRIP VI SCH ×4 (07:00→21:48)
[2022-12-20] MEDS: GABAPENTIN 300 MG CAP PO SCH ×3 (07:46→21:41)
[2022-12-20] MEDS: EMPAGLIFLOZIN 10 MG TAB PO SCH (07:47)
[2022-12-20] MEDS: levoFLOXacin 500 MG TAB PO SCH (10:00)
[2022-12-20] MEDS: FUROSEMIDE 20 MG/2 ML VIAL IV SCH (10:00)
[2022-12-20] MEDS: DOXYCYCLINE 100 MG TAB/CAP PO SCH ×2 (10:00→21:41)
[2022-12-20] MEDS: SACUBITRIL-VALSARTAN 24mg/26mg TAB PO SCH ×2 (10:32→21:42)
[2022-12-20] MEDS: AMIODARONE HCL 200 MG TAB PO SCH ×2 (10:35→21:42)
[2022-12-20] MEDS: CARVEDILOL 3.125 MG TAB PO SCH ×2 (10:36→21:42)
[2022-12-20] MEDS: predniSONE 5 MG TAB PO SCH (10:36)
[2022-12-20] MEDS: APIXABAN 5 MG TAB PO SCH ×2 (10:36→21:42)
[2022-12-20] MEDS: SPIRONOLACTONE 25 MG TAB PO SCH (10:36)
[2022-12-20 10:47] LABS: Basophils # (auto) 0.2 10 ^3/uL (0-0.2); Basophils % (auto) 1.2 % (0.0-2.0); Eosinophils # (auto) 0.9 10 ^3/uL (0-0.8); Eosinophils % (auto) 5.8 % (0.0-7.0); Hematocrit 51.2 % (36.0-46.0); Hemoglobin 16.2 g/dL (12.2-16.2); Lymphocytes # (auto) 1.7 10 ^3/uL (0.4-5.4); Lymphocytes % (auto) 11.1 % (10.0-50.0); Mean Corpuscular Hemoglobin 27.7 pg (28.0-32.0); Mean Corpuscular Hgb Conc. 31.6 g/dL (32.0-36.0); Mean Corpuscular Volume 87.5 fL (80.0-100.0); Monocytes # (auto) 1.4 10 ^3/uL (0-1.3); Monocytes % (auto) 8.9 % (0.0-12.0); Neutrophils # (auto) 11.4 10 ^3/uL (1.6-8.6); Nucleated Red Blood Cells % 0.2 %; Red Blood Cells 5.85 10^6/uL (4.0-5.20); White Blood Cell 15.6 10^3/uL (4.4-10.8)
[2022-12-20 11:24] LABS: Anion Gap 6 (5-15); Calcium 9.6 mg/dL (8.5-10.1); Carbon Dioxide 28 mmol/L (20-30); Chloride 104 mmol/L (98-107); Potassium 4.6 mmol/L (3.5-5.1); Sodium 138 mmol/L (136-145)
[2022-12-20 11:30] LABS: BUN/Creatinine Ratio 13.4 (10.0-20.0); Blood Urea Nitrogen 11 mg/dL (9-23); Glucose 194 mg/dL (74-106)
[2022-12-20] MEDS ORDERED: FUROSEMIDE 20 MG TAB PO ONE (15:00)
[2022-12-20] MEDS: ATORVASTATIN 20 MG TAB PO SCH (21:43)
[2022-12-21] VITALS (8 sets, daily range): BP systolic 109–145; BP diastolic 45–96; PULSE 60–108; RESP 18–20; TEMP 97.8–98.7; O2SAT 82–99
[2022-12-21] MEDS: ACCU-CHEK COMFORT CURVE STRIP VI SCH ×2 (05:45→11:47)
[2022-12-21] MEDS: InsuLIN REG 1unit/0.01ml Soln (100units/ml) SC SCH ×2 (05:45→11:48)
[2022-12-21] MEDS: GABAPENTIN 300 MG CAP PO SCH ×2 (06:17→13:56)
[2022-12-21] MEDS: EMPAGLIFLOZIN 10 MG TAB PO SCH (06:17)
[2022-12-21] MEDS: ALBUTEROL MEDNEB 2.5 mg/3ml NEB NEB SCH ×2 (06:57→13:29)
[2022-12-21] MEDS: IPRATROPIUM BROM 0.5 MG/2.5ML INH SOL NEB SCH ×2 (06:57→13:29)
[2022-12-21 07:42] LABS: Base Excess 1.3 mmol/L (-2.0-2.0)
[2022-12-21 08:31] LABS: Basophils # (auto) 0.2 10 ^3/uL (0-0.2); Lymphocytes # (auto) 1.9 10 ^3/uL (0.4-5.4)
[2022-12-21 08:40] LABS: Eosinophils # (auto) 0.8 10 ^3/uL (0-0.8); Eosinophils % (auto) 4.5 % (0.0-7.0); Hematocrit 53.7 % (36.0-46.0); Hemoglobin 17.2 g/dL (12.2-16.2); Lymphocytes % (auto) 10.1 % (10.0-50.0); Mean Corpuscular Hgb Conc. 32.1 g/dL (32.0-36.0); Mean Corpuscular Volume 87.4 fL (80.0-100.0); Monocytes % (auto) 10.6 % (0.0-12.0); Neutrophils # (auto) 13.8 10 ^3/uL (1.6-8.6); Neutrophils % (auto) 73.8 % (37.0-80.0); Nucleated Red Blood Cells % 0.1 %; Red Blood Cells 6.15 10^6/uL (4.0-5.20); Red Cell Distribution Width 17.4 % (11.8-14.3); White Blood Cell 18.6 10^3/uL (4.4-10.8)
[2022-12-21 09:00] LABS: Chloride 104 mmol/L (98-107); Potassium 5.3 mmol/L (3.5-5.1); Sodium 138 mmol/L (136-145)
[2022-12-21 09:01] LABS: Anion Gap 8 (5-15); Carbon Dioxide 26 mmol/L (20-30)
[2022-12-21 09:02] LABS: Calcium 9.5 mg/dL (8.5-10.1)
[2022-12-21 09:06] LABS: BUN/Creatinine Ratio 12.8 (10.0-20.0); Blood Urea Nitrogen 12 mg/dL (9-23); Glucose 152 mg/dL (74-106)
[2022-12-21] MEDS: DOXYCYCLINE 100 MG TAB/CAP PO SCH (09:10)
[2022-12-21] MEDS: APIXABAN 5 MG TAB PO SCH (09:10)
[2022-12-21] MEDS: SPIRONOLACTONE 25 MG TAB PO SCH (09:10)
[2022-12-21] MEDS: AMIODARONE HCL 200 MG TAB PO SCH (09:10)
[2022-12-21] MEDS: levoFLOXacin 500 MG TAB PO SCH (09:12)
[2022-12-21] MEDS: predniSONE 5 MG TAB PO SCH (09:13)
[2022-12-21] MEDS: SACUBITRIL-VALSARTAN 24mg/26mg TAB PO SCH (09:13)
[2022-12-21] MEDS: FUROSEMIDE 20 MG/2 ML VIAL IV SCH (09:14)
[2022-12-21] MEDS: CARVEDILOL 3.125 MG TAB PO SCH (09:14)
[2022-12-21] MEDS ORDERED: LEVO500T91 PO (09:51)
[2022-12-21] MEDS ORDERED: APIX5TAB PO (09:51)
[2022-12-21] MEDS ORDERED: EMPA1TAB PO (09:51)
[2022-12-21] MEDS ORDERED: SACU1TAB PO (09:51)
[2022-12-21] MEDS ORDERED: SPIR25TA PO (09:51)
[2022-12-21] MEDS ORDERED: CAR3125T PO (09:51)
[2022-12-21] MEDS ORDERED: FUR20T PO (09:51)
[2022-12-21] MEDS ORDERED: GABA-1250 PO (09:51)
[2022-12-21] MEDS ORDERED: AMIO200T33 PO (09:52)
[2022-12-21] MEDS ORDERED: FUROSEMIDE 20 MG TAB PO SCH (10:00)
== END 2022-12-21 16:30 | disposition home or self-care (01) | DRG 720 ==
LOC: EDBD 22:19 → ER 22:19 → TELE 12-13 03:23 → EDBD 12-13 03:23 → EDUNIT# 12-13 03:23 → TELE-WESTW 12-14 08:48
PROVIDERS: ADMIT Internal Medicine Geriatric Medicine; ATTEND Student in an Organized Health Care Education/Training Program
PROC: 5A09357 Assistance with Respiratory Ventilation, Less than 24 Consecutive Hours, Continuous Positive Airway Pressure (ICD-10-PCS; principal; 2022-12-13)
PROC: 5A09357 Assistance with Respiratory Ventilation, Less than 24 Consecutive Hours, Continuous Positive Airway Pressure (ICD-10-PCS; 2022-12-17)
PROC: 05H933Z Insertion of Infusion Device into Right Brachial Vein, Percutaneous Approach (ICD-10-PCS; 2022-12-17)
PROC: B54MZZA Ultrasonography of Right Upper Extremity Veins, Guidance (ICD-10-PCS; 2022-12-17)
PROC: 5A09357 Assistance with Respiratory Ventilation, Less than 24 Consecutive Hours, Continuous Positive Airway Pressure (ICD-10-PCS; 2022-12-18)
DX: A41.89 Other specified sepsis (principal); I50.43 Acute on chronic combined systolic (congestive) and diastolic (congestive) heart failure; I21.A1 Myocardial infarction type 2; I42.7 Cardiomyopathy due to drug and external agent; J15.9 Unspecified bacterial pneumonia; J96.11 Chronic respiratory failure with hypoxia; I11.0 Hypertensive heart disease with heart failure; J44.0 Chronic obstructive pulmonary disease with (acute) lower respiratory infection; Z20.822 Contact with and (suspected) exposure to COVID-19; I48.0 Paroxysmal atrial fibrillation; E66.01 Morbid (severe) obesity due to excess calories; F19.10 Other psychoactive substance abuse, uncomplicated; L03.115 Cellulitis of right lower limb; E87.5 Hyperkalemia; E11.9 Type 2 diabetes mellitus without complications; G47.33 Obstructive sleep apnea (adult) (pediatric); J98.11 Atelectasis; J44.1 Chronic obstructive pulmonary disease with (acute) exacerbation; Z85.3 Personal history of malignant neoplasm of breast; Z80.3 Family history of malignant neoplasm of breast; Z82.49 Family history of ischemic heart disease and other diseases of the circulatory system; Z82.5 Family history of asthma and other chronic lower respiratory diseases; Z88.0 Allergy status to penicillin; Z90.13 Acquired absence of bilateral breasts and nipples; Z68.42 Body mass index [BMI] 45.0-49.9, adult; Z88.2 Allergy status to sulfonamides; Z91.148 Patient's other noncompliance with medication regimen for other reason
CPT/HCPCS: 36415; 36600; 71045; 71275; 73502; 73630; 80048; 80053; 80061; 80202; 80307; 81001; 82805; 82962; 83036; 83605; 83735; 83880; 84443; 84484; 85025; 85379; 87040; 87070; 87081; 87086; 87205; 87426; 93005; 93970; 94640; 94660; 96365; 96366; 96367; 96375; 96376; 97110; 97116; 97163; 97530; 99291; G0378; J0692; J0696; J1815; J1885; J2405; J3490

== ENCOUNTER 2023-01-08 02:17 | Inpatient (IN) | payer MEDICAID, OTHER ==
[2023-01-08] VITALS (10 sets, daily range): BP systolic 92; BP diastolic 57; PULSE 83–101; RESP 18–26; TEMP 98.9; O2SAT 93–99
[~2023-01-08] VITALS: Ht 165.1 cm; Wt 86.6 kg
[~2023-01-08 02:17] MED LIST changes: +ALBU108A5 PO; +ALPR0.5T7 PO; +AMIO200T33 PO; +APIX5TAB PO; +CAR3125T PO; +EMPA1TAB PO; +FUR20T PO; +GABA-1250 PO; +LEVO500T91 PO; -LISI10TA34; +SACU1TAB PO; +SPIR25TA PO
[2023-01-08] MEDS ORDERED: ALBUTEROL MEDNEB 2.5 mg/3ml NEB NEB ONE ×2 (03:00→06:55)
[2023-01-08] MEDS ORDERED: NITROGLYCERIN 2% OINT 1GM PKG TD ONE (03:00)
[2023-01-08] MEDS ORDERED: IPRATROPIUM BROM 0.5 MG/2.5ML INH SOL NEB ONE (03:00)
[2023-01-08] MEDS ORDERED: FUROSEMIDE 100 MG/10ML VIAL IV ONE (03:00)
[2023-01-08] MEDS ORDERED: methylPREDNISolone SOD SUCC 125 MG/2 ML VL IV ONE (03:00)
[2023-01-08] MEDS ORDERED: PIPERACILLIN-TAZOB 3.375GM 100 ML IV ONE (03:15)
[2023-01-08] MEDS ORDERED: VANCOMYCIN PER PHARMACY 0 MG IV SCH ×2 (03:15→12:30)
[2023-01-08 03:46] LABS: Basophils # (auto) 0.2 10 ^3/uL (0-0.2); Basophils % (auto) 1.1 % (0.0-2.0); Eosinophils # (auto) 0.1 10 ^3/uL (0-0.8); Eosinophils % (auto) 0.9 % (0.0-7.0); Hematocrit 50.7 % (36.0-46.0); Hemoglobin 16.2 g/dL (12.2-16.2); Lymphocytes % (auto) 6.5 % (10.0-50.0); Mean Corpuscular Hemoglobin 27.9 pg (28.0-32.0); Mean Corpuscular Volume 87.1 fL (80.0-100.0); Monocytes # (auto) 1.9 10 ^3/uL (0-1.3); Monocytes % (auto) 12.1 % (0.0-12.0); Neutrophils # (auto) 12.3 10 ^3/uL (1.6-8.6); Neutrophils % (auto) 79.4 % (37.0-80.0); Red Blood Cells 5.83 10^6/uL (4.0-5.20); Red Cell Distribution Width 17.8 % (11.8-14.3); White Blood Cell 15.5 10^3/uL (4.4-10.8)
[2023-01-08 03:52] LABS: Base Excess 1.3 mmol/L (-2.0-2.0)
[2023-01-08 04:14] LABS: Alanine Aminotransferase 20 U/L (7-40); Albumin 4.4 g/dL (3.2-4.8); Alkaline Phosphatase 157 U/L (46-116); Anion Gap 9 (5-15); Aspartate Aminotransferase 19 U/L (13-40); BUN/Creatinine Ratio 10.5 (10.0-20.0); Blood Urea Nitrogen 9 mg/dL (9-23); Carbon Dioxide 25 mmol/L (20-30); Chloride 105 mmol/L (98-107); Glucose 159 mg/dL (74-106); Magnesium 1.7 mg/dL (1.6-2.6); Potassium 3.9 mmol/L (3.5-5.1); Sodium 139 mmol/L (136-145)
[2023-01-08 04:15] LABS: Bilirubin, Total 1.1 mg/dL (0.2-1.0); Total Protein 6.7 g/dL (5.7-8.2)
[2023-01-08 04:27] LABS: Lactic Acid w/Reflex 2.6 mmol/L (0.4-2.0)
[2023-01-08] MEDS ORDERED: ADENOSINE 6 MG/2 ML INJ IV ONE ×2 (04:29→04:30)
[2023-01-08] MEDS ORDERED: AMIODARONE BOLUS KIT 100 ML IV ONE (04:30)
[2023-01-08] MEDS ORDERED: AMIODARONE 450mg/250ml AE 250 ML IV SCH (04:45)
[2023-01-08] MEDS ORDERED: dilTIAZem 25 MG/5 ML VIAL IV ONE (04:45)
[2023-01-08] MEDS ORDERED: FUROSEMIDE 40 MG/4 ML VIAL IV ONE (05:30)
[2023-01-08] MEDS: VANCOMYCIN 1GM/250ML 250 ML IV ONE ×2 (05:41→11:51)
[2023-01-08 06:11] LABS: Urine Bacteria NONE SEEN /hpf (None Seen); Urine Blood Negative /uL (Negative); Urine Clarity Clear (Clear); Urine Color Yellow (Yellow); Urine Protein, UAD 1+ (Negative); Urine Specific Gravity 1.012 (1.001-1.035); Urine Urobilinogen Normal (Negative); Urine WBC 3 /hpf (0 - 5)
[2023-01-08 06:28] LABS: Amphetamine Screen, Urine Pos (NEGATIVE); Barbiturate Scree,Urine Neg (NEGATIVE); Benzodiazephine Screen, Urine Neg (NEGATIVE); Cocaine Screen, Urine Neg (NEGATIVE); Opiate Scree,Urine Neg (NEGATIVE)
[2023-01-08 06:29] LABS: Cannabinoid Screen, Urine Neg (NEGATIVE); Phencyclidine Screen, Urine Neg (NEGATIVE)
[2023-01-08] MEDS ORDERED: ONDANSETRON HCL 4 MG/2 ML VIAL IV ONE (07:30)
[2023-01-08] MEDS ORDERED: MORPHINE SULFATE 4 MG/ML SYR/VIAL IV ONE (07:30)
[2023-01-08 11:56] LABS: INR 1.15 (0.9-1.15); Partial Thromboplastin Time 27.9 SEC (24.5-34.5)
[2023-01-08] MEDS ORDERED: DEXTROSE (50%) 50ML SYRG IV PRN (12:30)
[2023-01-08] MEDS ORDERED: DOCUSATE SOD 100 MG CAP PO PRN (12:30)
[2023-01-08 12:53] LABS: Magnesium 1.6 mg/dL (1.6-2.6)
[2023-01-08 12:54] LABS: Phosphorus 3.3 mg/dL (2.4-5.1)
[2023-01-08] MEDS: MORPHINE SULFATE INJ 2 MG/ml SYRG IV PRN ×2 (13:55→23:14)
[2023-01-08] MEDS: ONDANSETRON HCL 4 MG/2 ML VIAL IV PRN (13:55)
[2023-01-08 14:00] LABS: Lactic Acid w/Reflex 3.2 mmol/L (0.4-2.0)
[2023-01-08] MEDS: GABAPENTIN 300 MG CAP PO SCH ×2 (14:11→22:33)
[2023-01-08] MEDS: CEFEPIME 2GM/50ML NS 50 ML IV SCH ×2 (14:14→23:36)
[2023-01-08] MEDS: methylPREDNISolone SOD SUCC 125 MG/2 ML VL IV SCH ×2 (14:14→22:29)
[2023-01-08] MEDS: AMIODARONE 450mg/250ml AE 250 ML IV SCH (14:25)
[2023-01-08 15:18] LABS: COVID19 ANTIGEN SOFIA FIA NEGATIVE (NEGATIVE); Rapid Influenza A Negative (Negative); Rapid Influenza B Negative (Negative)
[2023-01-08] MEDS: ACCU-CHEK COMFORT CURVE STRIP VI SCH ×2 (17:40→22:00)
[2023-01-08] MEDS: InsuLIN REG 1unit/0.01ml Soln (100units/ml) SC SCH ×2 (17:40→22:00)
[2023-01-08] MEDS: FUROSEMIDE 40 MG/4 ML VIAL IV SCH (18:43)
[2023-01-08] MEDS: LEVALBUTEROL HCL 1.25 MG/3 ML NEB NEB SCH ×2 (19:25→23:20)
[2023-01-08] MEDS: IPRATROPIUM BROM 0.5 MG/2.5ML INH SOL NEB SCH ×2 (19:25→23:21)
[2023-01-08] MEDS: VANCOMYCIN 1GM/250ML 250 ML IV SCH (21:25)
[2023-01-08] MEDS: CARVEDILOL 3.125 MG TAB PO SCH (22:32)
[2023-01-08] MEDS: APIXABAN 5 MG TAB PO SCH (22:33)
[2023-01-08] MEDS: SACUBITRIL-VALSARTAN 24mg/26mg TAB PO SCH (22:34)
[2023-01-09] VITALS (16 sets, daily range): BP systolic 108–149; BP diastolic 58–94; PULSE 52–93; RESP 16–20; TEMP 97.3–98.7; O2SAT 91–98
[2023-01-09] MEDS: AMIODARONE 450mg/250ml AE 250 ML IV SCH (02:28)
[2023-01-09 05:36] LABS: Hematocrit 48.6 % (36.0-46.0); Hemoglobin 15.3 g/dL (12.2-16.2); Mean Corpuscular Hemoglobin 27.2 pg (28.0-32.0); Mean Corpuscular Hgb Conc. 31.5 g/dL (32.0-36.0); Mean Corpuscular Volume 86.3 fL (80.0-100.0); Red Blood Cells 5.63 10^6/uL (4.0-5.20); Red Cell Distribution Width 17.5 % (11.8-14.3)
[2023-01-09] MEDS: VANCOMYCIN 1GM/250ML 250 ML IV SCH ×2 (05:49→19:55)
[2023-01-09] MEDS: CEFEPIME 2GM/50ML NS 50 ML IV SCH ×3 (05:50→22:08)
[2023-01-09] MEDS: methylPREDNISolone SOD SUCC 125 MG/2 ML VL IV SCH ×3 (05:53→22:07)
[2023-01-09] MEDS: GABAPENTIN 300 MG CAP PO SCH ×3 (05:57→22:07)
[2023-01-09] MEDS: FUROSEMIDE 40 MG/4 ML VIAL IV SCH ×2 (05:57→18:30)
[2023-01-09 06:05] LABS: Basophils % (manual) 0 (0.0-2.0); Blast Cells 0; Eosinophils % (manual) 0 (0-7); Metamyelocytes % 0; Myelocytes % 0; Promyelocytes % 0; Reactive Lymphocytes 0; White Blood Cell 34.6 10^3/uL (4.4-10.8)
[2023-01-09 06:12] LABS: Alanine Aminotransferase 18 U/L (7-40); Albumin 4.2 g/dL (3.2-4.8); Alkaline Phosphatase 134 U/L (46-116); Anion Gap 9 (5-15); Aspartate Aminotransferase 16 U/L (13-40); BUN/Creatinine Ratio 18.2 (10.0-20.0); Blood Urea Nitrogen 20 mg/dL (9-23); Calcium 9.1 mg/dL (8.7-10.4); Carbon Dioxide 26 mmol/L (20-30); Chloride 102 mmol/L (98-107); Glucose 274 mg/dL (74-106); Potassium 4.2 mmol/L (3.5-5.1); Sodium 137 mmol/L (136-145)
[2023-01-09 06:13] LABS: Total Protein 6.3 g/dL (5.7-8.2)
[2023-01-09] MEDS: ACCU-CHEK COMFORT CURVE STRIP VI SCH ×4 (06:16→22:07)
[2023-01-09] MEDS: MORPHINE SULFATE INJ 2 MG/ml SYRG IV PRN ×3 (06:21→20:37)
[2023-01-09] MEDS: InsuLIN REG 1unit/0.01ml Soln (100units/ml) SC SCH ×4 (06:22→22:09)
[2023-01-09 07:09] LABS: Bilirubin, Total 0.4 mg/dL (0.2-1.0)
[2023-01-09] MEDS: LEVALBUTEROL HCL 1.25 MG/3 ML NEB NEB SCH ×3 (08:04→19:04)
[2023-01-09] MEDS: IPRATROPIUM BROM 0.5 MG/2.5ML INH SOL NEB SCH ×3 (08:04→19:04)
[2023-01-09 09:10] LABS: Band Neutrophils % (manual) 5; Lymphocytes % (manual) 5 (10.0-50.0); Monocytes % (manual) 4 (0-12); Platelet Estimate Adequate
[2023-01-09] MEDS ORDERED: INFLUENZA QUAD 2023-2024 0.5 ML SYRG IM ONE (10:00)
[2023-01-09] MEDS ORDERED: PNEUMOCOCCAL VACC POLYS 25 MCG/0.5 ML VIAL IM ONE (10:00)
[2023-01-09] MEDS: SACUBITRIL-VALSARTAN 24mg/26mg TAB PO SCH ×2 (10:08→22:07)
[2023-01-09] MEDS: NICOTINE 21MG/24 HR TOPICAL PATCH TD SCH (10:08)
[2023-01-09] MEDS: CARVEDILOL 3.125 MG TAB PO SCH ×2 (10:09→22:08)
[2023-01-09] MEDS: APIXABAN 5 MG TAB PO SCH ×2 (10:09→22:07)
[2023-01-09] MEDS: PANTOPRAZOLE 40 MG/10 ML VIAL INJ IV SCH (10:09)
[2023-01-09] MEDS: SPIRONOLACTONE 25 MG TAB PO SCH (10:09)
[2023-01-09] MEDS ORDERED: AMIODARONE HCL 200 MG TAB PO ONE (13:00)
[2023-01-09] MEDS ORDERED: MAGNESIUM SULFATE 1GM/100ML 100 ML IV ONE (13:00)
[2023-01-09] MEDS: ONDANSETRON HCL 4 MG/2 ML VIAL IV PRN (15:46)
[2023-01-09] MEDS: AMIODARONE HCL 200 MG TAB PO SCH (22:07)
[2023-01-10] VITALS (15 sets, daily range): BP systolic 103–137; BP diastolic 52–87; PULSE 82–106; RESP 18–42; TEMP 97.5–98.4; O2SAT 90–100
[2023-01-10] MEDS: LEVALBUTEROL HCL 1.25 MG/3 ML NEB NEB SCH ×4 (00:26→12:36)
[2023-01-10] MEDS: IPRATROPIUM BROM 0.5 MG/2.5ML INH SOL NEB SCH ×4 (00:26→12:36)
[2023-01-10 05:24] LABS: Mean Corpuscular Hgb Conc. 31.8 g/dL (32.0-36.0); Mean Corpuscular Volume 87.3 fL (80.0-100.0)
[2023-01-10 05:25] LABS: Hematocrit 53.6 % (36.0-46.0); Hemoglobin 17.1 g/dL (12.2-16.2); Mean Corpuscular Hemoglobin 27.8 pg (28.0-32.0); Red Blood Cells 6.14 10^6/uL (4.0-5.20); Red Cell Distribution Width 17.1 % (11.8-14.3)
[2023-01-10] MEDS: MORPHINE SULFATE INJ 2 MG/ml SYRG IV PRN (05:25)
[2023-01-10 05:50] LABS: White Blood Cell 36.4 10^3/uL (4.4-10.8)
[2023-01-10 05:51] LABS: Band Neutrophils % (manual) 0; Basophils % (manual) 0 (0.0-2.0); Blast Cells 0; Eosinophils % (manual) 0 (0-7); Metamyelocytes % 0; Myelocytes % 0; Promyelocytes % 0; Reactive Lymphocytes 0
[2023-01-10] MEDS: methylPREDNISolone SOD SUCC 125 MG/2 ML VL IV SCH ×3 (05:54→23:28)
[2023-01-10] MEDS: FUROSEMIDE 40 MG/4 ML VIAL IV SCH ×2 (05:56→17:19)
[2023-01-10] MEDS: ACCU-CHEK COMFORT CURVE STRIP VI SCH ×3 (06:32→17:00)
[2023-01-10] MEDS: GABAPENTIN 300 MG CAP PO SCH ×3 (06:32→23:29)
[2023-01-10] MEDS: InsuLIN REG 1unit/0.01ml Soln (100units/ml) SC SCH ×3 (06:33→17:00)
[2023-01-10] MEDS: CEFEPIME 2GM/50ML NS 50 ML IV SCH ×3 (06:39→23:28)
[2023-01-10] MEDS: LORazepam 2MG/ML-1ML VIAL IV PRN ×2 (06:55→23:35)
[2023-01-10 07:06] LABS: Alanine Aminotransferase 21 U/L (7-40); Albumin 4.2 g/dL (3.2-4.8); Alkaline Phosphatase 139 U/L (46-116); Anion Gap 3 (5-15); Aspartate Aminotransferase 15 U/L (13-40); Blood Urea Nitrogen 18 mg/dL (9-23); Calcium 8.9 mg/dL (8.7-10.4); Carbon Dioxide 34 mmol/L (20-30); Chloride 101 mmol/L (98-107); Glucose 119 mg/dL (74-106); Potassium 4.3 mmol/L (3.5-5.1); Sodium 138 mmol/L (136-145)
[2023-01-10 07:07] LABS: Bilirubin, Total 0.4 mg/dL (0.2-1.0); Total Protein 6.5 g/dL (5.7-8.2)
[2023-01-10 07:12] LABS: Lymphocytes % (manual) 2 (10.0-50.0); Monocytes % (manual) 9 (0-12); Platelet Estimate Adequate
[2023-01-10] MEDS: SACUBITRIL-VALSARTAN 24mg/26mg TAB PO SCH ×2 (10:00→23:29)
[2023-01-10] MEDS: APIXABAN 5 MG TAB PO SCH ×2 (11:56→23:30)
[2023-01-10] MEDS: AMIODARONE HCL 200 MG TAB PO SCH ×2 (11:56→23:30)
[2023-01-10] MEDS: PANTOPRAZOLE 40 MG/10 ML VIAL INJ IV SCH (11:56)
[2023-01-10] MEDS: VANCOMYCIN 1GM/250ML 250 ML IV SCH (11:56)
[2023-01-10] MEDS: SPIRONOLACTONE 25 MG TAB PO SCH (11:56)
[2023-01-10] MEDS: CARVEDILOL 3.125 MG TAB PO SCH ×2 (11:58→23:30)
[2023-01-10] MEDS: NICOTINE 21MG/24 HR TOPICAL PATCH TD SCH (12:05)
[2023-01-11] VITALS (102 sets, daily range): BP systolic 64–224; BP diastolic 38–180; PULSE 56–117; RESP 15–100; TEMP 98.8–100.2; O2SAT 90–100
[2023-01-11] MEDS: IPRATROPIUM BROM 0.5 MG/2.5ML INH SOL NEB SCH ×4 (00:03→18:30)
[2023-01-11] MEDS: LEVALBUTEROL HCL 1.25 MG/3 ML NEB NEB SCH ×4 (00:03→18:30)
[2023-01-11] MEDS: VANCOMYCIN 1GM/250ML 250 ML IV SCH ×2 (00:10→14:34)
[2023-01-11] MEDS: InsuLIN REG 1unit/0.01ml Soln (100units/ml) SC SCH ×5 (00:21→21:46)
[2023-01-11] MEDS: ACCU-CHEK COMFORT CURVE STRIP VI SCH ×5 (00:21→21:38)
[2023-01-11] MEDS ORDERED: SUCCINYLCHOLINE CHLORIDE 20 MG/ML 10ML VIAL IV ONE (01:46)
[2023-01-11] MEDS ORDERED: ETOMIDATE (2MG/ML) 20ML VIAL IV ONE (01:46)
[2023-01-11] MEDS ORDERED: MIDAZOLAM DRIP 50 mg/50mL 50 ML IV ONE (01:56)
[2023-01-11] MEDS: MIDAZOLAM DRIP 50 mg/50mL 50 ML IV SCH ×4 (02:23→21:38)
[2023-01-11] MEDS ORDERED: NOREPINEPHRINE 8 MG/250ML KIT 250 ML IV ONE (02:51)
[2023-01-11] MEDS ORDERED: PHENYLEPHRINE IV 250 ML IV ONE (02:59)
[2023-01-11] MEDS: PHENYLEPHRINE IV 250 ML IV SCH ×3 (03:07→07:29)
[2023-01-11 03:25] LABS: Base Excess 2.9 mmol/L (-2.0-2.0)
[2023-01-11] MEDS: GABAPENTIN 300 MG CAP PO SCH ×3 (06:02→21:38)
[2023-01-11] MEDS: CEFEPIME 2GM/50ML NS 50 ML IV SCH ×3 (06:02→21:39)
[2023-01-11] MEDS: FUROSEMIDE 40 MG/4 ML VIAL IV SCH (06:02)
[2023-01-11] MEDS: methylPREDNISolone SOD SUCC 125 MG/2 ML VL IV SCH ×3 (06:02→21:38)
[2023-01-11 07:41] LABS: Alanine Aminotransferase 24 U/L (7-40); Albumin 3.7 g/dL (3.2-4.8); Alkaline Phosphatase 123 U/L (46-116); Anion Gap 8 (5-15); Aspartate Aminotransferase 28 U/L (13-40); BUN/Creatinine Ratio 14.5 (10.0-20.0); Blood Urea Nitrogen 17 mg/dL (9-23); Calcium 9.3 mg/dL (8.5-10.1); Carbon Dioxide 30 mmol/L (20-30); Chloride 100 mmol/L (98-107); Glucose 179 mg/dL (74-106); Potassium 5.5 mmol/L (3.5-5.1); Sodium 138 mmol/L (136-145)
[2023-01-11 07:42] LABS: Bilirubin, Total 0.5 mg/dL (0.2-1.0)
[2023-01-11 07:45] LABS: Hematocrit 52.3 % (36.0-46.0); Hemoglobin 15.8 g/dL (12.2-16.2); Mean Corpuscular Hemoglobin 27.3 pg (28.0-32.0); Mean Corpuscular Hgb Conc. 30.1 g/dL (32.0-36.0); Mean Corpuscular Volume 90.7 fL (80.0-100.0); Red Blood Cells 5.77 10^6/uL (4.0-5.20); Red Cell Distribution Width 17.9 % (11.8-14.3)
[2023-01-11 07:49] LABS: White Blood Cell 33.6 10^3/uL (4.4-10.8)
[2023-01-11 07:51] LABS: Band Neutrophils % (manual) 0; Basophils % (manual) 0 (0.0-2.0); Blast Cells 0; Eosinophils % (manual) 0 (0-7); Myelocytes % 0; Promyelocytes % 0; Reactive Lymphocytes 0
[2023-01-11] MEDS: NOREPINEPHRINE BITARTRATE 32 MG in SODIUM CHL 0.9% 218 ML IV SCH (08:00)
[2023-01-11 08:57] LABS: Base Excess 6.8 mmol/L (-2.0-2.0)
[2023-01-11 09:42] LABS: Lymphocytes % (manual) 6 (10.0-50.0); Metamyelocytes % 5; Monocytes % (manual) 9 (0-12); Platelet Estimate Adequate
[2023-01-11] MEDS: PHENYLEPHRINE INJ 80 MG in SODIUM CHL 0.9% 242 ML IV SCH ×2 (09:50→20:42)
[2023-01-11] MEDS: PANTOPRAZOLE 40 MG/10 ML VIAL INJ IV SCH (10:39)
[2023-01-11] MEDS: AMIODARONE HCL 200 MG TAB PO SCH ×2 (10:40→21:38)
[2023-01-11] MEDS: APIXABAN 5 MG TAB PO SCH ×2 (10:40→21:38)
[2023-01-11] MEDS: NICOTINE 21MG/24 HR TOPICAL PATCH TD SCH (10:41)
[2023-01-11] MEDS: fentaNYL Drip 2500mCg/250mlNS 250 ML IV SCH (13:30)
[2023-01-11] MEDS ORDERED: IOHEXOL 300 MG/ML 100ML BOTTLE IJ ONE (16:03)
[2023-01-11 18:30] LABS: Chloride 101 mmol/L (98-107); Potassium 4.3 mmol/L (3.5-5.1); Sodium 142 mmol/L (136-145)
[2023-01-11 18:31] LABS: Anion Gap 4 (5-15); Calcium 8.4 mg/dL (8.7-10.4); Carbon Dioxide 37 mmol/L (20-30)
[2023-01-11 18:36] LABS: BUN/Creatinine Ratio 21.6 (10.0-20.0); Blood Urea Nitrogen 22 mg/dL (9-23)
[2023-01-11] MEDS: FUROSEMIDE 20 MG/2 ML VIAL IV SCH (18:37)
[2023-01-11 18:55] LABS: Glucose 205 mg/dL (74-106)
[2023-01-12] VITALS (110 sets, daily range): BP systolic 88–142; BP diastolic 42–95; PULSE 63–102; RESP 11–37; TEMP 97.7–98.8; O2SAT 92–99
[2023-01-12] MEDS: LEVALBUTEROL HCL 1.25 MG/3 ML NEB NEB SCH ×4 (00:03→18:48)
[2023-01-12] MEDS: IPRATROPIUM BROM 0.5 MG/2.5ML INH SOL NEB SCH ×4 (00:03→18:48)
[2023-01-12] MEDS: MIDAZOLAM DRIP 50 mg/50mL 50 ML IV SCH ×5 (02:38→22:40)
[2023-01-12 03:21] LABS: Basophils # (auto) 0 10 ^3/uL (0-0.2); Basophils % (auto) 0.1 % (0.0-2.0); Eosinophils # (auto) 0 10 ^3/uL (0-0.8); Hematocrit 47.9 % (36.0-46.0); Hemoglobin 15.4 g/dL (12.2-16.2); Lymphocytes # (auto) 0.5 10 ^3/uL (0.4-5.4); Lymphocytes % (auto) 3.1 % (10.0-50.0); Mean Corpuscular Hemoglobin 28.2 pg (28.0-32.0); Mean Corpuscular Hgb Conc. 32.1 g/dL (32.0-36.0); Mean Corpuscular Volume 87.7 fL (80.0-100.0); Monocytes # (auto) 1.3 10 ^3/uL (0-1.3); Monocytes % (auto) 8.5 % (0.0-12.0); Neutrophils # (auto) 13.3 10 ^3/uL (1.6-8.6); Neutrophils % (auto) 88.3 % (37.0-80.0); Nucleated Red Blood Cells % 0.1 %; Red Blood Cells 5.46 10^6/uL (4.0-5.20); Red Cell Distribution Width 17.5 % (11.8-14.3); White Blood Cell 15.1 10^3/uL (4.4-10.8)
[2023-01-12 03:28] LABS: Chloride 102 mmol/L (98-107); Potassium 3.9 mmol/L (3.5-5.1); Sodium 143 mmol/L (136-145)
[2023-01-12 03:29] LABS: Anion Gap 4 (5-15); Calcium 8.5 mg/dL (8.7-10.4); Carbon Dioxide 37 mmol/L (20-30)
[2023-01-12 03:34] LABS: BUN/Creatinine Ratio 23.3 (10.0-20.0); Blood Urea Nitrogen 24 mg/dL (9-23)
[2023-01-12] MEDS: VANCOMYCIN 1GM/250ML 250 ML IV SCH ×2 (04:38→18:36)
[2023-01-12 04:54] LABS: Glucose 228 mg/dL (74-106)
[2023-01-12] MEDS: GABAPENTIN 300 MG CAP PO SCH ×3 (06:13→21:51)
[2023-01-12] MEDS: methylPREDNISolone SOD SUCC 125 MG/2 ML VL IV SCH ×3 (06:13→21:51)
[2023-01-12] MEDS: FUROSEMIDE 20 MG/2 ML VIAL IV SCH ×2 (06:14→17:46)
[2023-01-12] MEDS: CEFEPIME 2GM/50ML NS 50 ML IV SCH ×3 (06:14→21:51)
[2023-01-12] MEDS: ACCU-CHEK COMFORT CURVE STRIP VI SCH ×4 (06:31→21:51)
[2023-01-12] MEDS: InsuLIN REG 1unit/0.01ml Soln (100units/ml) SC SCH ×4 (06:32→22:14)
[2023-01-12] MEDS: NOREPINEPHRINE BITARTRATE 32 MG in SODIUM CHL 0.9% 218 ML IV SCH (08:00)
[2023-01-12 08:03] LABS: Base Excess 8.5 mmol/L (-2.0-2.0)
[2023-01-12] MEDS: PANTOPRAZOLE 40 MG/10 ML VIAL INJ IV SCH (10:18)
[2023-01-12] MEDS: NICOTINE 21MG/24 HR TOPICAL PATCH TD SCH (10:19)
[2023-01-12] MEDS: AMIODARONE HCL 200 MG TAB PO SCH ×2 (10:19→21:51)
[2023-01-12] MEDS: APIXABAN 5 MG TAB PO SCH ×2 (10:19→21:51)
[2023-01-12] MEDS: fentaNYL Drip 2500mCg/250mlNS 250 ML IV SCH (13:30)
[2023-01-12] MEDS: Glucerna 1.2 Cal 1Liter BOTTLE GT SCH (14:30)
[2023-01-13] VITALS (113 sets, daily range): BP systolic 85–167; BP diastolic 43–82; PULSE 71–163; RESP 12–32; TEMP 98.2–99.7; O2SAT 91–96
[2023-01-13] MEDS: IPRATROPIUM BROM 0.5 MG/2.5ML INH SOL NEB SCH ×4 (00:23→18:56)
[2023-01-13] MEDS: LEVALBUTEROL HCL 1.25 MG/3 ML NEB NEB SCH ×4 (00:23→18:56)
[2023-01-13 04:00] LABS: Basophils # (auto) 0 10 ^3/uL (0-0.2); Eosinophils # (auto) 0 10 ^3/uL (0-0.8); Hematocrit 46.8 % (36.0-46.0); Hemoglobin 14.8 g/dL (12.2-16.2); Lymphocytes # (auto) 0.4 10 ^3/uL (0.4-5.4); Lymphocytes % (auto) 2.5 % (10.0-50.0); Mean Corpuscular Hemoglobin 27.4 pg (28.0-32.0); Mean Corpuscular Hgb Conc. 31.6 g/dL (32.0-36.0); Mean Corpuscular Volume 86.7 fL (80.0-100.0); Monocytes # (auto) 1.1 10 ^3/uL (0-1.3); Monocytes % (auto) 7.1 % (0.0-12.0); Neutrophils # (auto) 14.2 10 ^3/uL (1.6-8.6); Neutrophils % (auto) 90.4 % (37.0-80.0); Red Blood Cells 5.39 10^6/uL (4.0-5.20); Red Cell Distribution Width 17.3 % (11.8-14.3); White Blood Cell 15.7 10^3/uL (4.4-10.8)
[2023-01-13 04:07] LABS: Anion Gap 4 (5-15); Carbon Dioxide 39 mmol/L (20-30); Chloride 102 mmol/L (98-107); Potassium 3.7 mmol/L (3.5-5.1); Sodium 145 mmol/L (136-145)
[2023-01-13 04:12] LABS: Glucose 242 mg/dL (74-106)
[2023-01-13 04:13] LABS: BUN/Creatinine Ratio 30.2 (10.0-20.0); Blood Urea Nitrogen 29 mg/dL (9-23)
[2023-01-13] MEDS: FUROSEMIDE 20 MG/2 ML VIAL IV SCH ×2 (05:57→17:34)
[2023-01-13] MEDS: methylPREDNISolone SOD SUCC 125 MG/2 ML VL IV SCH ×3 (05:57→22:14)
[2023-01-13] MEDS: CEFEPIME 2GM/50ML NS 50 ML IV SCH ×3 (05:57→22:19)
[2023-01-13] MEDS: GABAPENTIN 300 MG CAP PO SCH ×3 (05:57→22:15)
[2023-01-13] MEDS: InsuLIN REG 1unit/0.01ml Soln (100units/ml) SC SCH ×4 (06:21→22:22)
[2023-01-13] MEDS: ACCU-CHEK COMFORT CURVE STRIP VI SCH ×4 (06:22→22:19)
[2023-01-13 07:26] LABS: Base Excess 10.2 mmol/L (-2.0-2.0)
[2023-01-13] MEDS: PHENYLEPHRINE INJ 80 MG in SODIUM CHL 0.9% 242 ML IV SCH (08:00)
[2023-01-13] MEDS: NOREPINEPHRINE BITARTRATE 32 MG in SODIUM CHL 0.9% 218 ML IV SCH (08:00)
[2023-01-13] MEDS ORDERED: AMIODARONE BOLUS KIT 100 ML IV ONE (08:15)
[2023-01-13] MEDS ORDERED: AMIODARONE 450mg/250ml AE 250 ML IV SCH (08:15)
[2023-01-13] MEDS: MIDAZOLAM DRIP 50 mg/50mL 50 ML IV SCH (08:17)
[2023-01-13] MEDS: VANCOMYCIN 1GM/250ML 250 ML IV SCH ×2 (08:29→22:19)
[2023-01-13] MEDS: AMIODARONE HCL 200 MG TAB PO SCH (10:00)
[2023-01-13] MEDS: PANTOPRAZOLE 40 MG/10 ML VIAL INJ IV SCH (10:23)
[2023-01-13] MEDS: APIXABAN 5 MG TAB PO SCH ×2 (10:23→22:15)
[2023-01-13] MEDS: NICOTINE 21MG/24 HR TOPICAL PATCH TD SCH (10:24)
[2023-01-13] MEDS ORDERED: POTASSIUM CHL 20MEQ/50ML 50 ML IV ONE (10:30)
[2023-01-13] MEDS: fentaNYL Drip 2500mCg/250mlNS 250 ML IV SCH (13:30)
[2023-01-13] MEDS: Glucerna 1.2 Cal 1Liter BOTTLE GT SCH (14:59)
[2023-01-13] MEDS: AMIODARONE 450mg/250ml AE 250 ML IV SCH ×2 (15:00→17:42)
[2023-01-13] MEDS: INSULIN LANTUS (GLARGINE) 1 /0.01ml (100units/ml) SC SCH (22:21)
[2023-01-14] VITALS (112 sets, daily range): BP systolic 111–204; BP diastolic 53–106; PULSE 62–124; RESP 11–32; TEMP 97.3–100.2; O2SAT 93–98
[2023-01-14] MEDS: LEVALBUTEROL HCL 1.25 MG/3 ML NEB NEB SCH ×4 (00:22→18:12)
[2023-01-14] MEDS: IPRATROPIUM BROM 0.5 MG/2.5ML INH SOL NEB SCH ×4 (00:22→18:12)
[2023-01-14 04:18] LABS: Chloride 103 mmol/L (98-107); Potassium 3.6 mmol/L (3.5-5.1); Sodium 145 mmol/L (136-145)
[2023-01-14 04:19] LABS: Anion Gap 5 (5-15); Calcium 8.7 mg/dL (8.7-10.4); Carbon Dioxide 37 mmol/L (20-30)
[2023-01-14 04:24] LABS: BUN/Creatinine Ratio 38.2 (10.0-20.0); Glucose 247 mg/dL (74-106)
[2023-01-14 04:29] LABS: Blood Urea Nitrogen 42 mg/dL (9-23)
[2023-01-14] MEDS: GABAPENTIN 300 MG CAP PO SCH ×3 (05:44→21:33)
[2023-01-14] MEDS: methylPREDNISolone SOD SUCC 125 MG/2 ML VL IV SCH ×3 (05:44→21:33)
[2023-01-14] MEDS: CEFEPIME 2GM/50ML NS 50 ML IV SCH ×3 (05:44→21:35)
[2023-01-14] MEDS: FUROSEMIDE 20 MG/2 ML VIAL IV SCH ×2 (05:44→17:36)
[2023-01-14] MEDS: EMPAGLIFLOZIN 10 MG TAB PO SCH (06:33)
[2023-01-14] MEDS: ACCU-CHEK COMFORT CURVE STRIP VI SCH ×4 (06:33→21:32)
[2023-01-14] MEDS: InsuLIN REG 1unit/0.01ml Soln (100units/ml) SC SCH ×4 (06:42→21:46)
[2023-01-14] MEDS ORDERED: INSULIN LANTUS (GLARGINE) 1 /0.01ml (100units/ml) SC SCH (07:00)
[2023-01-14] MEDS: PHENYLEPHRINE INJ 80 MG in SODIUM CHL 0.9% 242 ML IV SCH (07:19)
[2023-01-14] MEDS: NOREPINEPHRINE BITARTRATE 32 MG in SODIUM CHL 0.9% 218 ML IV SCH (07:19)
[2023-01-14] MEDS: fentaNYL Drip 2500mCg/250mlNS 250 ML IV SCH (07:20)
[2023-01-14] MEDS: APIXABAN 5 MG TAB PO SCH ×2 (07:49→21:33)
[2023-01-14] MEDS: PANTOPRAZOLE 40 MG/10 ML VIAL INJ IV SCH (07:49)
[2023-01-14] MEDS: NICOTINE 21MG/24 HR TOPICAL PATCH TD SCH (07:49)
[2023-01-14 08:27] LABS: Base Excess 6.7 mmol/L (-2.0-2.0)
[2023-01-14] MEDS: AMIODARONE 450mg/250ml AE 250 ML IV SCH (09:33)
[2023-01-14] MEDS: AMIODARONE HCL 200 MG TAB PO SCH ×2 (12:49→21:32)
[2023-01-14] MEDS: INSULIN LANTUS (GLARGINE) 1 /0.01ml (100units/ml) SC SCH (21:47)
[2023-01-15] VITALS (89 sets, daily range): BP systolic 131–218; BP diastolic 61–142; PULSE 59–159; RESP 15–41; TEMP 97.5–99.9; O2SAT 86–98
[2023-01-15] MEDS: IPRATROPIUM BROM 0.5 MG/2.5ML INH SOL NEB SCH ×4 (00:05→18:47)
[2023-01-15] MEDS: LEVALBUTEROL HCL 1.25 MG/3 ML NEB NEB SCH ×4 (00:05→18:47)
[2023-01-15] MEDS: MIDAZOLAM DRIP 50 mg/50mL 50 ML IV SCH ×2 (02:00→23:31)
[2023-01-15 04:42] LABS: Chloride 106 mmol/L (98-107); Potassium 4.2 mmol/L (3.5-5.1); Sodium 148 mmol/L (136-145)
[2023-01-15 04:43] LABS: Anion Gap 4 (5-15); Calcium 8.7 mg/dL (8.7-10.4); Carbon Dioxide 38 mmol/L (20-30)
[2023-01-15 04:49] LABS: Blood Urea Nitrogen 44 mg/dL (9-23); Glucose 200 mg/dL (74-106)
[2023-01-15] MEDS: CEFEPIME 2GM/50ML NS 50 ML IV SCH ×3 (06:02→21:36)
[2023-01-15] MEDS: GABAPENTIN 300 MG CAP PO SCH ×3 (06:03→21:37)
[2023-01-15] MEDS: FUROSEMIDE 20 MG/2 ML VIAL IV SCH ×2 (06:03→16:47)
[2023-01-15] MEDS: methylPREDNISolone SOD SUCC 125 MG/2 ML VL IV SCH ×3 (06:03→21:36)
[2023-01-15] MEDS: ACCU-CHEK COMFORT CURVE STRIP VI SCH ×4 (07:10→21:45)
[2023-01-15] MEDS: EMPAGLIFLOZIN 10 MG TAB PO SCH (07:10)
[2023-01-15] MEDS: InsuLIN REG 1unit/0.01ml Soln (100units/ml) SC SCH ×4 (07:11→21:46)
[2023-01-15] MEDS: PHENYLEPHRINE INJ 80 MG in SODIUM CHL 0.9% 242 ML IV SCH (07:22)
[2023-01-15] MEDS: NOREPINEPHRINE BITARTRATE 32 MG in SODIUM CHL 0.9% 218 ML IV SCH (07:22)
[2023-01-15] MEDS: NICOTINE 21MG/24 HR TOPICAL PATCH TD SCH (07:52)
[2023-01-15] MEDS: AMIODARONE HCL 200 MG TAB PO SCH ×2 (07:52→21:36)
[2023-01-15] MEDS: PANTOPRAZOLE 40 MG/10 ML VIAL INJ IV SCH (07:53)
[2023-01-15] MEDS: APIXABAN 5 MG TAB PO SCH ×2 (07:53→21:37)
[2023-01-15 09:26] LABS: Base Excess 9.1 mmol/L (-2.0-2.0)
[2023-01-15] MEDS: LORazepam 2MG/ML-1ML VIAL IV PRN ×5 (11:06→22:28)
[2023-01-15] MEDS: fentaNYL Drip 2500mCg/250mlNS 250 ML IV SCH (11:20)
[2023-01-15] MEDS: hydrALAZINE HCL 20 MG/ML VL IV PRN ×3 (13:07→21:05)
[2023-01-15 15:05] LABS: Base Excess 7.1 mmol/L (-2.0-2.0)
[2023-01-15] MEDS ORDERED: cloNIDine 0.2 mg/24hr 7DAY PATCH TD ONE (15:45)
[2023-01-15 16:35] LABS: Mean Corpuscular Hgb Conc. 31.7 g/dL (32.0-36.0)
[2023-01-15 16:39] LABS: Hematocrit 53.5 % (36.0-46.0); Hemoglobin 16.9 g/dL (12.2-16.2); Mean Corpuscular Hemoglobin 27.8 pg (28.0-32.0); Mean Corpuscular Volume 87.8 fL (80.0-100.0); Red Blood Cells 6.09 10^6/uL (4.0-5.20); Red Cell Distribution Width 17.3 % (11.8-14.3)
[2023-01-15 16:56] LABS: Basophils % (manual) 0 (0.0-2.0); Blast Cells 0; Eosinophils % (manual) 0 (0-7); Metamyelocytes % 0; Myelocytes % 0; Promyelocytes % 0; Reactive Lymphocytes 0
[2023-01-15] MEDS ORDERED: HALOPERIDOL LACTATE 5 MG/ML INJ VIAL IM ONE (17:15)
[2023-01-15 17:17] LABS: Anisocytosis Slight; Band Neutrophils % (manual) 7; Large Platelets FEW; Lymphocytes % (manual) 2 (10.0-50.0); Macrocytosis Slight; Monocytes % (manual) 5 (0-12); Platelet Estimate Adequa
[2023-01-15] MEDS: MORPHINE SULFATE INJ 2 MG/ml SYRG IV PRN (21:08)
[2023-01-15] MEDS: INSULIN LANTUS (GLARGINE) 1 /0.01ml (100units/ml) SC SCH (21:45)
[2023-01-16] VITALS (105 sets, daily range): BP systolic 116–185; BP diastolic 60–105; PULSE 77–150; RESP 10–36; TEMP 94.6–98.4; O2SAT 74–100
[2023-01-16] MEDS: LEVALBUTEROL HCL 1.25 MG/3 ML NEB NEB SCH ×4 (00:29→18:09)
[2023-01-16] MEDS: IPRATROPIUM BROM 0.5 MG/2.5ML INH SOL NEB SCH ×4 (00:29→18:09)
[2023-01-16] MEDS: LORazepam 2MG/ML-1ML VIAL IV PRN ×5 (00:31→21:19)
[2023-01-16] MEDS: MORPHINE SULFATE INJ 2 MG/ml SYRG IV PRN ×2 (01:50→22:35)
[2023-01-16 04:05] LABS: Hematocrit 55.4 % (36.0-46.0); Hemoglobin 17.2 g/dL (12.2-16.2); Mean Corpuscular Hemoglobin 27.3 pg (28.0-32.0); Mean Corpuscular Hgb Conc. 31.1 g/dL (32.0-36.0); Mean Corpuscular Volume 87.6 fL (80.0-100.0); Red Blood Cells 6.32 10^6/uL (4.0-5.20); Red Cell Distribution Width 17.5 % (11.8-14.3); White Blood Cell 27.4 10^3/uL (4.4-10.8)
[2023-01-16 04:06] LABS: Chloride 110 mmol/L (98-107); Potassium 3.5 mmol/L (3.5-5.1)
[2023-01-16 04:07] LABS: Anion Gap 5 (5-15); Calcium 9.2 mg/dL (8.7-10.4); Carbon Dioxide 39 mmol/L (20-30)
[2023-01-16 04:09] LABS: Basophils % (manual) 0 (0.0-2.0); Blast Cells 0; Eosinophils % (manual) 0 (0-7); Promyelocytes % 0; Reactive Lymphocytes 0
[2023-01-16 04:12] LABS: BUN/Creatinine Ratio 48.8 (10.0-20.0); Blood Urea Nitrogen 40 mg/dL (9-23); Glucose 190 mg/dL (74-106)
[2023-01-16 04:41] LABS: Sodium 154 mmol/L (136-145)
[2023-01-16] MEDS: GABAPENTIN 300 MG CAP PO SCH ×3 (06:00→21:29)
[2023-01-16] MEDS: methylPREDNISolone SOD SUCC 125 MG/2 ML VL IV SCH ×3 (06:16→21:28)
[2023-01-16] MEDS: FUROSEMIDE 20 MG/2 ML VIAL IV SCH (06:16)
[2023-01-16] MEDS: EMPAGLIFLOZIN 10 MG TAB PO SCH (06:17)
[2023-01-16] MEDS: ACCU-CHEK COMFORT CURVE STRIP VI SCH ×4 (06:33→21:30)
[2023-01-16] MEDS: CEFEPIME 2GM/50ML NS 50 ML IV SCH ×3 (06:33→21:29)
[2023-01-16] MEDS: InsuLIN REG 1unit/0.01ml Soln (100units/ml) SC SCH ×4 (06:38→21:43)
[2023-01-16] MEDS: PHENYLEPHRINE INJ 80 MG in SODIUM CHL 0.9% 242 ML IV SCH (08:00)
[2023-01-16] MEDS: NOREPINEPHRINE BITARTRATE 32 MG in SODIUM CHL 0.9% 218 ML IV SCH (08:00)
[2023-01-16 08:26] LABS: Band Neutrophils % (manual) 2; Lymphocytes % (manual) 4 (10.0-50.0); Metamyelocytes % 2; Monocytes % (manual) 6 (0-12); Myelocytes % 2; Platelet Estimate Adequate
[2023-01-16] MEDS: AMIODARONE HCL 200 MG TAB PO SCH (10:00)
[2023-01-16] MEDS: APIXABAN 5 MG TAB PO SCH (10:00)
[2023-01-16] MEDS: PANTOPRAZOLE 40 MG/10 ML VIAL INJ IV SCH (11:01)
[2023-01-16] MEDS: NICOTINE 21MG/24 HR TOPICAL PATCH TD SCH (11:01)
[2023-01-16] MEDS ORDERED: AMIODARONE BOLUS KIT 100 ML IV ONE (12:15)
[2023-01-16] MEDS ORDERED: HEPARIN DRIP/D5W 100UNITS/ML 250 ML IV SCH ×2 (12:15→21:15)
[2023-01-16] MEDS ORDERED: AMIODARONE 450mg/250ml AE 250 ML IV SCH (12:30)
[2023-01-16] MEDS: fentaNYL Drip 2500mCg/250mlNS 250 ML IV SCH (12:43)
[2023-01-16 12:46] LABS: Basophils # (auto) 0.1 10 ^3/uL (0-0.2); Basophils % (auto) 0.2 % (0.0-2.0); Mean Corpuscular Volume 87.9 fL (80.0-100.0); Nucleated Red Blood Cells % 0.1 %
[2023-01-16 12:48] LABS: Eosinophils # (auto) 0.3 10 ^3/uL (0-0.8); Eosinophils % (auto) 1.3 % (0.0-7.0); Hematocrit 53.8 % (36.0-46.0); Lymphocytes # (auto) 0.5 10 ^3/uL (0.4-5.4); Lymphocytes % (auto) 1.9 % (10.0-50.0); Mean Corpuscular Hemoglobin 27.8 pg (28.0-32.0); Mean Corpuscular Hgb Conc. 31.6 g/dL (32.0-36.0); Monocytes # (auto) 1.9 10 ^3/uL (0-1.3); Monocytes % (auto) 7.3 % (0.0-12.0); Neutrophils # (auto) 23.3 10 ^3/uL (1.6-8.6); Neutrophils % (auto) 89.3 % (37.0-80.0); Red Blood Cells 6.12 10^6/uL (4.0-5.20); Red Cell Distribution Width 17.7 % (11.8-14.3); White Blood Cell 26.1 10^3/uL (4.4-10.8)
[2023-01-16 13:02] LABS: INR 1.11 (0.9-1.15); Partial Thromboplastin Time 23.9 SEC (24.5-34.5); Prothrombin Time 11.6 sec (9.3-11.8)
[2023-01-16] MEDS ORDERED: FUROSEMIDE 20 MG/2 ML VIAL ONE (13:52)
[2023-01-16] MEDS ORDERED: FUROSEMIDE 20 MG/2 ML VIAL IV ONE (14:00)
[2023-01-16 14:47] LABS: Base Excess 11.4 mmol/L (-2.0-2.0)
[2023-01-16] MEDS: D5W 5% 1,000 ML IV SCH (16:18)
[2023-01-16] MEDS: FUROSEMIDE 40 MG/4 ML VIAL IV SCH (18:45)
[2023-01-16] MEDS: AMIODARONE 450mg/250ml AE 250 ML IV SCH ×2 (18:45→22:08)
[2023-01-16 19:35] LABS: INR 1.11 (0.9-1.15); Partial Thromboplastin Time 29.4 SEC (24.5-34.5); Prothrombin Time 11.6 sec (9.3-11.8)
[2023-01-16] MEDS ORDERED: HEPARIN SODIUM (PORCINE) 5000 UNITS/ML 1ML VIAL IV ONE (20:45)
[2023-01-16] MEDS: INSULIN LANTUS (GLARGINE) 1 /0.01ml (100units/ml) SC SCH (21:42)
[2023-01-16 23:13] LABS: Base Excess 12.1 mmol/L (-2.0-2.0)
[2023-01-17] VITALS (106 sets, daily range): BP systolic 110–169; BP diastolic 44–83; PULSE 71–94; RESP 12–32; TEMP 96.6–98.1; O2SAT 90–100
[2023-01-17] MEDS: LEVALBUTEROL HCL 1.25 MG/3 ML NEB NEB SCH ×8 (00:03→22:03)
[2023-01-17] MEDS: IPRATROPIUM BROM 0.5 MG/2.5ML INH SOL NEB SCH ×8 (00:03→22:03)
[2023-01-17] MEDS: LORazepam 2MG/ML-1ML VIAL IV PRN ×6 (01:20→22:38)
[2023-01-17] MEDS: MIDAZOLAM DRIP 50 mg/50mL 50 ML IV SCH (02:00)
[2023-01-17 03:51] LABS: Hemoglobin 15.2 g/dL (12.2-16.2); Neutrophils % (auto) 91.3 % (37.0-80.0)
[2023-01-17 03:54] LABS: Basophils # (auto) 0 10 ^3/uL (0-0.2); Basophils % (auto) 0.3 % (0.0-2.0); Eosinophils # (auto) 0 10 ^3/uL (0-0.8); Hematocrit 48.5 % (36.0-46.0); Lymphocytes # (auto) 0.4 10 ^3/uL (0.4-5.4); Lymphocytes % (auto) 2.2 % (10.0-50.0); Mean Corpuscular Hemoglobin 27.6 pg (28.0-32.0); Mean Corpuscular Hgb Conc. 31.4 g/dL (32.0-36.0); Mean Corpuscular Volume 88.2 fL (80.0-100.0); Monocytes # (auto) 1.2 10 ^3/uL (0-1.3); Monocytes % (auto) 6.2 % (0.0-12.0); Neutrophils # (auto) 17.7 10 ^3/uL (1.6-8.6); Nucleated Red Blood Cells % 0.1 %; Red Cell Distribution Width 17.6 % (11.8-14.3); White Blood Cell 19.4 10^3/uL (4.4-10.8)
[2023-01-17 04:00] LABS: Calcium 8.6 mg/dL (8.7-10.4); Chloride 112 mmol/L (98-107); Potassium 3.5 mmol/L (3.5-5.1); Sodium 156 mmol/L (136-145)
[2023-01-17 04:06] LABS: Blood Urea Nitrogen 34 mg/dL (9-23); Glucose 266 mg/dL (74-106)
[2023-01-17 04:35] LABS: Partial Thromboplastin Time 102.8 SEC (24.5-34.5)
[2023-01-17 04:38] LABS: Anion Gap 3.99999 (5-15); Carbon Dioxide > 40 mmol/L (20-30)
[2023-01-17] MEDS ORDERED: HEPARIN DRIP/D5W 100UNITS/ML 250 ML IV SCH (05:00)
[2023-01-17] MEDS: MORPHINE SULFATE INJ 2 MG/ml SYRG IV PRN ×2 (05:01→12:36)
[2023-01-17] MEDS: GABAPENTIN 300 MG CAP PO SCH ×3 (05:38→21:50)
[2023-01-17] MEDS: FUROSEMIDE 40 MG/4 ML VIAL IV SCH ×3 (05:38→10:31)
[2023-01-17] MEDS: methylPREDNISolone SOD SUCC 125 MG/2 ML VL IV SCH ×3 (05:38→21:49)
[2023-01-17] MEDS: CEFEPIME 2GM/50ML NS 50 ML IV SCH (05:40)
[2023-01-17 05:48] LABS: INR 1.1 (0.9-1.15); Prothrombin Time 11.5 sec (9.3-11.8)
[2023-01-17] MEDS: ACCU-CHEK COMFORT CURVE STRIP VI SCH ×4 (06:20→21:50)
[2023-01-17] MEDS: InsuLIN REG 1unit/0.01ml Soln (100units/ml) SC SCH ×4 (06:27→22:02)
[2023-01-17] MEDS: EMPAGLIFLOZIN 10 MG TAB PO SCH (07:00)
[2023-01-17] MEDS: D5W 5% 1,000 ML IV SCH ×3 (07:31→22:05)
[2023-01-17 07:53] LABS: Base Excess 10.4 mmol/L (-2.0-2.0)
[2023-01-17] MEDS: PHENYLEPHRINE INJ 80 MG in SODIUM CHL 0.9% 242 ML IV SCH (08:00)
[2023-01-17] MEDS: NOREPINEPHRINE BITARTRATE 32 MG in SODIUM CHL 0.9% 218 ML IV SCH (08:00)
[2023-01-17] MEDS ORDERED: HALOPERIDOL LACTATE 5 MG/ML INJ VIAL ONE (08:42)
[2023-01-17] MEDS ORDERED: HALOPERIDOL LACTATE 5 MG/ML INJ VIAL IM PRN (08:45)
[2023-01-17] MEDS: PANTOPRAZOLE 40 MG/10 ML VIAL INJ IV SCH (10:32)
[2023-01-17] MEDS: cloNIDine 0.3 mg/24hr 7DAY PATCH TD SCH (10:32)
[2023-01-17] MEDS: NICOTINE 21MG/24 HR TOPICAL PATCH TD SCH (10:32)
[2023-01-17] MEDS ORDERED: ENOXAPARIN SOD 100 MG/1 ML SYRINGE SC ONE (11:45)
[2023-01-17] MEDS: ACETYLCYSTEINE 20%(200MG/ML) SOL 4ML NEB SCH ×2 (13:58→22:04)
[2023-01-17] MEDS: AMIODARONE 450mg/250ml AE 250 ML IV SCH (15:03)
[2023-01-17] MEDS: hydrALAZINE HCL 20 MG/ML VL IV PRN (17:48)
[2023-01-17] MEDS ORDERED: LORazepam 2MG/ML-1ML VIAL IV PRN (20:15)
[2023-01-17] MEDS: ENOXAPARIN SOD 100 MG/1 ML SYRINGE SC SCH (21:50)
[2023-01-17] MEDS: INSULIN LANTUS (GLARGINE) 1 /0.01ml (100units/ml) SC SCH (22:02)
[2023-01-18] VITALS (87 sets, daily range): BP systolic 129–187; BP diastolic 50–111; PULSE 74–104; RESP 11–29; TEMP 97.2–98.3; O2SAT 83–100
[2023-01-18] MEDS: LORazepam 2MG/ML-1ML VIAL IV PRN ×2 (00:58→06:57)
[2023-01-18] MEDS ORDERED: MORPHINE SULFATE INJ 2 MG/ml SYRG ONE (01:25)
[2023-01-18] MEDS: MORPHINE SULFATE INJ 2 MG/ml SYRG IV PRN (01:26)
[2023-01-18] MEDS: IPRATROPIUM BROM 0.5 MG/2.5ML INH SOL NEB SCH ×6 (02:03→22:19)
[2023-01-18] MEDS: LEVALBUTEROL HCL 1.25 MG/3 ML NEB NEB SCH ×6 (02:04→22:20)
[2023-01-18] MEDS: HALOPERIDOL LACTATE 5 MG/ML INJ VIAL IM PRN (03:13)
[2023-01-18 04:31] LABS: Basophils # (auto) 0 10 ^3/uL (0-0.2); Basophils % (auto) 0.1 % (0.0-2.0); Eosinophils # (auto) 0 10 ^3/uL (0-0.8); Hematocrit 49.6 % (36.0-46.0); Hemoglobin 15.5 g/dL (12.2-16.2); Lymphocytes # (auto) 0.4 10 ^3/uL (0.4-5.4); Lymphocytes % (auto) 2.3 % (10.0-50.0); Mean Corpuscular Hemoglobin 27.5 pg (28.0-32.0); Mean Corpuscular Hgb Conc. 31.3 g/dL (32.0-36.0); Mean Corpuscular Volume 87.9 fL (80.0-100.0); Monocytes # (auto) 0.9 10 ^3/uL (0-1.3); Neutrophils # (auto) 17.6 10 ^3/uL (1.6-8.6); Neutrophils % (auto) 92.6 % (37.0-80.0); Nucleated Red Blood Cells % 0.1 %; Red Blood Cells 5.65 10^6/uL (4.0-5.20); Red Cell Distribution Width 17.3 % (11.8-14.3)
[2023-01-18] MEDS: methylPREDNISolone SOD SUCC 125 MG/2 ML VL IV SCH ×4 (05:26→21:29)
[2023-01-18] MEDS: hydrALAZINE HCL 20 MG/ML VL IV PRN ×4 (05:26→19:57)
[2023-01-18] MEDS: GABAPENTIN 300 MG CAP PO SCH ×3 (05:46→21:29)
[2023-01-18] MEDS: AMIODARONE 450mg/250ml AE 250 ML IV SCH ×2 (05:46→21:00)
[2023-01-18] MEDS: ACCU-CHEK COMFORT CURVE STRIP VI SCH ×4 (06:32→21:30)
[2023-01-18] MEDS: InsuLIN REG 1unit/0.01ml Soln (100units/ml) SC SCH ×4 (06:35→21:33)
[2023-01-18] MEDS: ACETYLCYSTEINE 20%(200MG/ML) SOL 4ML NEB SCH ×3 (07:02→22:21)
[2023-01-18 07:11] LABS: Chloride 111 mmol/L (98-107); Potassium 3.3 mmol/L (3.5-5.1); Sodium 154 mmol/L (136-145)
[2023-01-18 07:12] LABS: Anion Gap 7 (5-15); Calcium 8.8 mg/dL (8.7-10.4); Carbon Dioxide 36 mmol/L (20-30)
[2023-01-18 07:17] LABS: BUN/Creatinine Ratio 34.6 (10.0-20.0); Blood Urea Nitrogen 28 mg/dL (9-23); Glucose 234 mg/dL (74-106)
[2023-01-18 07:38] LABS: Base Excess 12.8 mmol/L (-2.0-2.0)
[2023-01-18] MEDS ORDERED: POTASSIUM CHL 20MEQ/100ML 100 ML IV ONE (10:00)
[2023-01-18] MEDS: PANTOPRAZOLE 40 MG/10 ML VIAL INJ IV SCH (10:03)
[2023-01-18] MEDS: ENOXAPARIN SOD 100 MG/1 ML SYRINGE SC SCH ×2 (10:03→21:30)
[2023-01-18] MEDS: FUROSEMIDE 40 MG/4 ML VIAL IV SCH (10:03)
[2023-01-18] MEDS: NICOTINE 21MG/24 HR TOPICAL PATCH TD SCH (10:04)
[2023-01-18] MEDS: FLUCONAZOLE 200MG/100ML 100 ML IV SCH ×2 (10:19→11:16)
[2023-01-18] MEDS: D5W 5% 1,000 ML IV SCH (17:12)
[2023-01-18] MEDS: INSULIN LANTUS (GLARGINE) 1 /0.01ml (100units/ml) SC SCH (21:32)
[2023-01-19] VITALS (31 sets, daily range): BP systolic 129–184; BP diastolic 56–104; PULSE 67–109; RESP 12–28; TEMP 98.2–98.9; O2SAT 76–100
[2023-01-19] MEDS: LEVALBUTEROL HCL 1.25 MG/3 ML NEB NEB SCH ×4 (02:20→18:39)
[2023-01-19] MEDS: IPRATROPIUM BROM 0.5 MG/2.5ML INH SOL NEB SCH ×4 (02:20→18:39)
[2023-01-19] MEDS: HALOPERIDOL LACTATE 5 MG/ML INJ VIAL IM PRN (02:44)
[2023-01-19] MEDS: hydrALAZINE HCL 20 MG/ML VL IV PRN ×3 (04:13→18:56)
[2023-01-19] MEDS: ACCU-CHEK COMFORT CURVE STRIP VI SCH ×4 (06:31→21:35)
[2023-01-19] MEDS: GABAPENTIN 300 MG CAP PO SCH ×3 (06:31→21:39)
[2023-01-19] MEDS: InsuLIN REG 1unit/0.01ml Soln (100units/ml) SC SCH ×4 (06:34→21:36)
[2023-01-19] MEDS: ACETYLCYSTEINE 20%(200MG/ML) SOL 4ML NEB SCH ×3 (07:09→18:40)
[2023-01-19] MEDS: D5W 5% 1,000 ML IV SCH (07:40)
[2023-01-19] MEDS: FLUCONAZOLE 200MG/100ML 100 ML IV SCH ×2 (11:00→13:09)
[2023-01-19] MEDS: FUROSEMIDE 40 MG/4 ML VIAL IV SCH (11:33)
[2023-01-19] MEDS: methylPREDNISolone SOD SUCC 125 MG/2 ML VL IV SCH ×2 (11:34→21:40)
[2023-01-19] MEDS: PANTOPRAZOLE 40 MG/10 ML VIAL INJ IV SCH (11:34)
[2023-01-19 11:58] LABS: Basophils # (auto) 0 10 ^3/uL (0-0.2); Basophils % (auto) 0.1 % (0.0-2.0); Eosinophils # (auto) 0 10 ^3/uL (0-0.8); Hematocrit 51.9 % (36.0-46.0); Hemoglobin 16.3 g/dL (12.2-16.2); Lymphocytes # (auto) 0.8 10 ^3/uL (0.4-5.4); Lymphocytes % (auto) 3.1 % (10.0-50.0); Mean Corpuscular Hemoglobin 27.3 pg (28.0-32.0); Mean Corpuscular Hgb Conc. 31.4 g/dL (32.0-36.0); Mean Corpuscular Volume 87.1 fL (80.0-100.0); Monocytes # (auto) 1.1 10 ^3/uL (0-1.3); Monocytes % (auto) 4.3 % (0.0-12.0); Neutrophils % (auto) 92.5 % (37.0-80.0); Red Blood Cells 5.96 10^6/uL (4.0-5.20); Red Cell Distribution Width 17.2 % (11.8-14.3); White Blood Cell 24.9 10^3/uL (4.4-10.8)
[2023-01-19 12:09] LABS: Chloride 103 mmol/L (98-107); Potassium 3.5 mmol/L (3.5-5.1); Sodium 144 mmol/L (136-145)
[2023-01-19 12:10] LABS: Anion Gap 3 (5-15); Carbon Dioxide 38 mmol/L (20-30)
[2023-01-19 12:11] LABS: Calcium 8.7 mg/dL (8.7-10.4)
[2023-01-19 12:15] LABS: Glucose 275 mg/dL (74-106)
[2023-01-19 12:16] LABS: BUN/Creatinine Ratio 32.4 (10.0-20.0); Blood Urea Nitrogen 22 mg/dL (9-23)
[2023-01-19] MEDS: NICOTINE 21MG/24 HR TOPICAL PATCH TD SCH (13:08)
[2023-01-19] MEDS: OLANZapine 5 MG TAB PO SCH (21:38)
[2023-01-19] MEDS: SACUBITRIL-VALSARTAN 24mg/26mg TAB PO SCH (21:38)
[2023-01-19] MEDS: INSULIN LANTUS (GLARGINE) 1 /0.01ml (100units/ml) SC SCH (21:38)
[2023-01-19] MEDS: AMIODARONE HCL 200 MG TAB PO SCH (21:39)
[2023-01-19] MEDS: APIXABAN 5 MG TAB PO SCH (21:39)
[2023-01-19] MEDS: CARVEDILOL 3.125 MG TAB PO SCH (21:39)
[2023-01-19] MEDS ORDERED: OLANZapine 5 MG TAB PO SCH (22:00)
[2023-01-19] MEDS ORDERED: PATIENTS OWN MEDICATION (eliquis 5 MG) PO SCH (22:00)
[2023-01-20] VITALS (31 sets, daily range): BP systolic 129–171; BP diastolic 69–99; PULSE 63–94; RESP 10–22; TEMP 97.5–98.7; O2SAT 87–99
[2023-01-20] MEDS: LEVALBUTEROL HCL 1.25 MG/3 ML NEB NEB SCH ×4 (00:22→22:08)
[2023-01-20] MEDS: IPRATROPIUM BROM 0.5 MG/2.5ML INH SOL NEB SCH ×4 (00:22→22:07)
[2023-01-20] MEDS: GABAPENTIN 300 MG CAP PO SCH ×3 (06:07→21:25)
[2023-01-20] MEDS: hydrALAZINE HCL 20 MG/ML VL IV PRN ×2 (06:08→12:13)
[2023-01-20] MEDS: ACCU-CHEK COMFORT CURVE STRIP VI SCH ×4 (06:16→21:26)
[2023-01-20] MEDS: InsuLIN REG 1unit/0.01ml Soln (100units/ml) SC SCH ×4 (06:17→21:30)
[2023-01-20] MEDS: ACETYLCYSTEINE 20%(200MG/ML) SOL 4ML NEB SCH ×3 (06:28→22:08)
[2023-01-20] MEDS: methylPREDNISolone SOD SUCC 125 MG/2 ML VL IV SCH ×2 (10:00→21:35)
[2023-01-20] MEDS: OLANZapine 5 MG TAB PO SCH ×2 (10:55→21:35)
[2023-01-20] MEDS: SACUBITRIL-VALSARTAN 24mg/26mg TAB PO SCH ×2 (10:55→21:35)
[2023-01-20] MEDS: APIXABAN 5 MG TAB PO SCH ×2 (10:56→21:24)
[2023-01-20] MEDS: AMIODARONE HCL 200 MG TAB PO SCH ×2 (10:56→21:26)
[2023-01-20] MEDS: PANTOPRAZOLE 40 MG/10 ML VIAL INJ IV SCH (10:57)
[2023-01-20] MEDS: CARVEDILOL 3.125 MG TAB PO SCH ×2 (10:57→21:26)
[2023-01-20] MEDS: NICOTINE 21MG/24 HR TOPICAL PATCH TD SCH (10:58)
[2023-01-20] MEDS: FLUCONAZOLE 200MG/100ML 100 ML IV SCH ×2 (11:57→13:06)
[2023-01-20] MEDS: FUROSEMIDE 40 MG/4 ML VIAL IV SCH (12:09)
[2023-01-20 12:53] LABS: Basophils # (auto) 0 10 ^3/uL (0-0.2); Eosinophils # (auto) 0.1 10 ^3/uL (0-0.8); Monocytes # (auto) 1.3 10 ^3/uL (0-1.3); Nucleated Red Blood Cells % 0.1 %
[2023-01-20 12:55] LABS: Basophils % (auto) 0.1 % (0.0-2.0); Eosinophils % (auto) 0.5 % (0.0-7.0); Hemoglobin 17.4 g/dL (12.2-16.2); Lymphocytes # (auto) 1.1 10 ^3/uL (0.4-5.4); Lymphocytes % (auto) 5.1 % (10.0-50.0); Mean Corpuscular Hemoglobin 27.8 pg (28.0-32.0); Mean Corpuscular Hgb Conc. 32.3 g/dL (32.0-36.0); Mean Corpuscular Volume 86.1 fL (80.0-100.0); Monocytes % (auto) 5.8 % (0.0-12.0); Neutrophils # (auto) 19.2 10 ^3/uL (1.6-8.6); Neutrophils % (auto) 88.5 % (37.0-80.0); Red Blood Cells 6.27 10^6/uL (4.0-5.20); Red Cell Distribution Width 16.8 % (11.8-14.3); White Blood Cell 21.7 10^3/uL (4.4-10.8)
[2023-01-20 13:08] LABS: Alanine Aminotransferase 175 U/L (7-40); Albumin 3.5 g/dL (3.2-4.8); Alkaline Phosphatase 187 U/L (46-116); Anion Gap 4 (5-15); Aspartate Aminotransferase 147 U/L (13-40); BUN/Creatinine Ratio 26.3 (10.0-20.0); Bilirubin, Total 0.8 mg/dL (0.2-1.0); Blood Urea Nitrogen 20 mg/dL (9-23); Calcium 8.5 mg/dL (8.7-10.4); Carbon Dioxide 37 mmol/L (20-30); Chloride 100 mmol/L (98-107); Glucose 247 mg/dL (74-106); Potassium 3.6 mmol/L (3.5-5.1); Sodium 141 mmol/L (136-145); Total Protein 5.4 g/dL (5.7-8.2)
[2023-01-20] MEDS: INSULIN LANTUS (GLARGINE) 1 /0.01ml (100units/ml) SC SCH (21:35)
[2023-01-21] VITALS (16 sets, daily range): BP systolic 125–145; BP diastolic 82–88; PULSE 74–97; RESP 14–22; TEMP 97.4–98.2; O2SAT 90–99
[2023-01-21] MEDS: GABAPENTIN 300 MG CAP PO SCH ×3 (05:32→21:41)
[2023-01-21] MEDS: ACCU-CHEK COMFORT CURVE STRIP VI SCH ×4 (06:10→21:43)
[2023-01-21] MEDS: InsuLIN REG 1unit/0.01ml Soln (100units/ml) SC SCH ×4 (06:14→21:51)
[2023-01-21] MEDS: LEVALBUTEROL HCL 1.25 MG/3 ML NEB NEB SCH ×3 (07:16→22:02)
[2023-01-21] MEDS: IPRATROPIUM BROM 0.5 MG/2.5ML INH SOL NEB SCH ×3 (07:16→22:02)
[2023-01-21] MEDS: ACETYLCYSTEINE 20%(200MG/ML) SOL 4ML NEB SCH (07:16)
[2023-01-21] MEDS: methylPREDNISolone SOD SUCC 125 MG/2 ML VL IV SCH (10:06)
[2023-01-21] MEDS: NICOTINE 21MG/24 HR TOPICAL PATCH TD SCH (10:06)
[2023-01-21] MEDS: FLUCONAZOLE 200MG/100ML 100 ML IV SCH ×2 (10:06→12:26)
[2023-01-21] MEDS: SACUBITRIL-VALSARTAN 24mg/26mg TAB PO SCH ×2 (10:06→21:42)
[2023-01-21] MEDS: FUROSEMIDE 40 MG/4 ML VIAL IV SCH (10:06)
[2023-01-21] MEDS: CARVEDILOL 3.125 MG TAB PO SCH ×2 (10:07→21:42)
[2023-01-21] MEDS: OLANZapine 5 MG TAB PO SCH ×2 (10:07→21:42)
[2023-01-21] MEDS: APIXABAN 5 MG TAB PO SCH ×2 (10:07→21:42)
[2023-01-21] MEDS: AMIODARONE HCL 200 MG TAB PO SCH ×2 (10:07→21:41)
[2023-01-21] MEDS: PANTOPRAZOLE 40 MG/10 ML VIAL INJ IV SCH (10:07)
[2023-01-21] MEDS ORDERED: INSULIN LANTUS (GLARGINE) 1 /0.01ml (100units/ml) SC ONE (12:15)
[2023-01-21] MEDS ORDERED: FUROSEMIDE 40 MG TAB PO ONE (17:30)
[2023-01-21] MEDS: HYDROcodone-ACET 5/325MG TAB PO PRN (18:21)
[2023-01-21] MEDS: INSULIN LANTUS (GLARGINE) 1 /0.01ml (100units/ml) SC SCH (21:55)
[2023-01-22] VITALS (10 sets, daily range): BP systolic 91–165; BP diastolic 70–103; PULSE 64–81; RESP 16–20; TEMP 97.3–98.2; O2SAT 92–98
[2023-01-22] MEDS: GABAPENTIN 300 MG CAP PO SCH ×3 (05:43→23:15)
[2023-01-22] MEDS: EMPAGLIFLOZIN 10 MG TAB PO SCH ×2 (05:44→13:37)
[2023-01-22] MEDS: ACCU-CHEK COMFORT CURVE STRIP VI SCH ×4 (06:26→23:36)
[2023-01-22] MEDS: InsuLIN REG 1unit/0.01ml Soln (100units/ml) SC SCH ×3 (06:27→23:33)
[2023-01-22] MEDS: LEVALBUTEROL HCL 1.25 MG/3 ML NEB NEB SCH ×3 (07:50→22:38)
[2023-01-22] MEDS: IPRATROPIUM BROM 0.5 MG/2.5ML INH SOL NEB SCH ×3 (07:50→22:38)
[2023-01-22] MEDS: APIXABAN 5 MG TAB PO SCH ×2 (13:36→23:16)
[2023-01-22] MEDS: FUROSEMIDE 40 MG TAB PO SCH (13:36)
[2023-01-22] MEDS: SACUBITRIL-VALSARTAN 24mg/26mg TAB PO SCH ×2 (13:36→23:15)
[2023-01-22] MEDS: OLANZapine 5 MG TAB PO SCH ×2 (13:36→23:15)
[2023-01-22] MEDS: CARVEDILOL 3.125 MG TAB PO SCH ×2 (13:36→23:17)
[2023-01-22] MEDS: SPIRONOLACTONE 25 MG TAB PO SCH (13:37)
[2023-01-22] MEDS: NICOTINE 21MG/24 HR TOPICAL PATCH TD SCH (13:37)
[2023-01-22] MEDS: AMIODARONE HCL 200 MG TAB PO SCH ×2 (13:37→23:16)
[2023-01-22] MEDS: HYDROcodone-ACET 5/325MG TAB PO PRN (16:36)
[2023-01-22] MEDS: INSULIN LANTUS (GLARGINE) 1 /0.01ml (100units/ml) SC SCH (22:00)
[2023-01-23] VITALS (16 sets, daily range): BP systolic 96–125; BP diastolic 55–78; PULSE 67–81; RESP 16–20; TEMP 97.5–98.5; O2SAT 89–98
[2023-01-23] MEDS: ACCU-CHEK COMFORT CURVE STRIP VI SCH ×3 (06:15→17:33)
[2023-01-23] MEDS: InsuLIN REG 1unit/0.01ml Soln (100units/ml) SC SCH ×4 (06:17→22:00)
[2023-01-23] MEDS: GABAPENTIN 300 MG CAP PO SCH ×2 (06:18→15:15)
[2023-01-23] MEDS: NICOTINE 21MG/24 HR TOPICAL PATCH TD SCH (10:00)
[2023-01-23] MEDS: FUROSEMIDE 40 MG TAB PO SCH (10:34)
[2023-01-23] MEDS: SPIRONOLACTONE 25 MG TAB PO SCH (10:34)
[2023-01-23] MEDS: APIXABAN 5 MG TAB PO SCH (10:35)
[2023-01-23] MEDS: SACUBITRIL-VALSARTAN 24mg/26mg TAB PO SCH (10:35)
[2023-01-23] MEDS: AMIODARONE HCL 200 MG TAB PO SCH (10:35)
[2023-01-23] MEDS: OLANZapine 5 MG TAB PO SCH (10:36)
[2023-01-23] MEDS: CARVEDILOL 3.125 MG TAB PO SCH (10:36)
[2023-01-23] MEDS: IPRATROPIUM BROM 0.5 MG/2.5ML INH SOL NEB SCH ×2 (14:39→22:00)
[2023-01-23] MEDS: LEVALBUTEROL HCL 1.25 MG/3 ML NEB NEB SCH ×2 (14:40→22:00)
[2023-01-23] MEDS: INSULIN LANTUS (GLARGINE) 1 /0.01ml (100units/ml) SC SCH (22:00)
[2023-01-24 00:15] VITALS: PULSE 75
[2023-01-24] MEDS: HYDROcodone-ACET 5/325MG TAB PO PRN (00:25)
[2023-01-24] MEDS: SACUBITRIL-VALSARTAN 24mg/26mg TAB PO SCH ×2 (00:25→10:00)
[2023-01-24] MEDS: OLANZapine 5 MG TAB PO SCH ×2 (00:28→10:00)
[2023-01-24] MEDS: GABAPENTIN 300 MG CAP PO SCH ×2 (00:28→06:18)
[2023-01-24] MEDS: AMIODARONE HCL 200 MG TAB PO SCH ×2 (00:28→10:00)
[2023-01-24] MEDS: APIXABAN 5 MG TAB PO SCH ×2 (00:28→10:00)
[2023-01-24] MEDS: CARVEDILOL 3.125 MG TAB PO SCH ×2 (00:28→10:00)
[2023-01-24] MEDS: ACCU-CHEK COMFORT CURVE STRIP VI SCH ×3 (00:29→11:30)
[2023-01-24 05:00] VITALS: BP 117/80; PULSE 90; RESP 20; TEMP 100.6; O2SAT 92
[2023-01-24] MEDS: EMPAGLIFLOZIN 10 MG TAB PO SCH (06:19)
[2023-01-24] MEDS: InsuLIN REG 1unit/0.01ml Soln (100units/ml) SC SCH ×2 (06:19→11:30)
[2023-01-24] MEDS: IPRATROPIUM BROM 0.5 MG/2.5ML INH SOL NEB SCH (07:43)
[2023-01-24 07:44] VITALS: PULSE 92; RESP 18; O2SAT 97; O2SAT 98
[2023-01-24] MEDS: LEVALBUTEROL HCL 1.25 MG/3 ML NEB NEB SCH (07:44)
[2023-01-24 07:54] VITALS: PULSE 69; RESP 20; O2SAT 98
[2023-01-24 08:00] VITALS: BP 96/69; PULSE 87; RESP 20; TEMP 98.7; O2SAT 92
[2023-01-24] MEDS: cloNIDine 0.3 mg/24hr 7DAY PATCH TD SCH (09:00)
[2023-01-24] MEDS: FUROSEMIDE 40 MG TAB PO SCH (10:00)
[2023-01-24] MEDS: SPIRONOLACTONE 25 MG TAB PO SCH (10:00)
[2023-01-24] MEDS: NICOTINE 21MG/24 HR TOPICAL PATCH TD SCH (10:00)
== END 2023-01-24 10:50 | disposition left against medical advice (07) | DRG 720 ==
LOC: EDBD 02:17 → ER 02:17 → TELE 12:30 → TELE-WESTW 23:47 → ICU WEST 01-11 04:11 → TELE-CENTR 01-20 19:10
PROVIDERS: ADMIT Nurse Practitioner Family; ATTEND Hospitalist
PROC: 5A09357 Assistance with Respiratory Ventilation, Less than 24 Consecutive Hours, Continuous Positive Airway Pressure (ICD-10-PCS; 2023-01-08)
PROC: 02HV33Z Insertion of Infusion Device into Superior Vena Cava, Percutaneous Approach (ICD-10-PCS; 2023-01-08)
PROC: 5A09357 Assistance with Respiratory Ventilation, Less than 24 Consecutive Hours, Continuous Positive Airway Pressure (ICD-10-PCS; 2023-01-10)
PROC: 5A1955Z Respiratory Ventilation, Greater than 96 Consecutive Hours (ICD-10-PCS; principal; 2023-01-11)
PROC: 0BH17EZ Insertion of Endotracheal Airway into Trachea, Via Natural or Artificial Opening (ICD-10-PCS; 2023-01-11)
PROC: 5A09357 Assistance with Respiratory Ventilation, Less than 24 Consecutive Hours, Continuous Positive Airway Pressure (ICD-10-PCS; 2023-01-11)
DX: A41.9 Sepsis, unspecified organism (principal); J96.21 Acute and chronic respiratory failure with hypoxia; J18.9 Pneumonia, unspecified organism; I50.23 Acute on chronic systolic (congestive) heart failure; I21.A1 Myocardial infarction type 2; E11.52 Type 2 diabetes mellitus with diabetic peripheral angiopathy with gangrene; I70.262 Atherosclerosis of native arteries of extremities with gangrene, left leg; I47.10 Supraventricular tachycardia, unspecified; I27.81 Cor pulmonale (chronic); I11.0 Hypertensive heart disease with heart failure; Z20.822 Contact with and (suspected) exposure to COVID-19; E66.2 Morbid (severe) obesity with alveolar hypoventilation; I42.7 Cardiomyopathy due to drug and external agent; J44.0 Chronic obstructive pulmonary disease with (acute) lower respiratory infection; J44.1 Chronic obstructive pulmonary disease with (acute) exacerbation; I48.0 Paroxysmal atrial fibrillation; F32.A Depression, unspecified; F41.9 Anxiety disorder, unspecified; G89.29 Other chronic pain; E11.65 Type 2 diabetes mellitus with hyperglycemia; E78.5 Hyperlipidemia, unspecified; F15.10 Other stimulant abuse, uncomplicated; F17.210 Nicotine dependence, cigarettes, uncomplicated; G93.1 Anoxic brain damage, not elsewhere classified; Z53.29 Procedure and treatment not carried out because of patient's decision for other reasons; J98.11 Atelectasis; Z68.31 Body mass index [BMI] 31.0-31.9, adult; Z74.01 Bed confinement status; Z79.01 Long term (current) use of anticoagulants; Z79.4 Long term (current) use of insulin; Z79.52 Long term (current) use of systemic steroids; Z80.3 Family history of malignant neoplasm of breast; Z82.49 Family history of ischemic heart disease and other diseases of the circulatory system; Z82.5 Family history of asthma and other chronic lower respiratory diseases; Z83.3 Family history of diabetes mellitus; Z85.3 Personal history of malignant neoplasm of breast; Z85.41 Personal history of malignant neoplasm of cervix uteri; Z88.0 Allergy status to penicillin; Z88.2 Allergy status to sulfonamides; Z90.13 Acquired absence of bilateral breasts and nipples; Z91.148 Patient's other noncompliance with medication regimen for other reason; Z99.81 Dependence on supplemental oxygen
CPT/HCPCS: 36415; 36600; 70450; 71045; 71260; 74177; 80048; 80053; 80202; 80307; 81001; 82805; 82962; 83036; 83605; 83735; 83880; 84100; 84484; 85007; 85025; 85027; 85610; 85730; 87040; 87070; 87077; 87081; 87086; 87088; 87205; 87426; 87804; 92610; 93005; 93925; 94002; 94003; 94640; 94660; 94667; 94668; 97110; 97116; 97163; 97530; C9113; G0378; J0153; J0330; J0692; J1450; J1815; J2250; J2405; J2543; J3480; J7060

== ENCOUNTER 2023-06-28 00:38 | Emergency (ER) | payer MEDICARE, MEDICAID ==
[~2023-06-28] VITALS: Ht 154.9 cm; Wt 101.6 kg
[~2023-06-28 00:38] MED LIST changes: -CAR3125T PO; +CARV-214 PO; -GLIP5TAB12 PO; +GLIP5TAB21 PO
[2023-06-28 01:03] LABS: Basophils # (auto) 0.1 10 ^3/uL (0-0.2); Eosinophils # (auto) 0.2 10 ^3/uL (0-0.8); Hemoglobin 13.1 g/dL (12.2-16.2); Lymphocytes # (auto) 1.4 10 ^3/uL (0.4-5.4)
[2023-06-28 01:05] LABS: Basophils % (auto) 0.9 % (0.0-2.0); Eosinophils % (auto) 1.3 % (0.0-7.0); Hematocrit 42.5 % (36.0-46.0); Lymphocytes % (auto) 11.5 % (10.0-50.0); Mean Corpuscular Hemoglobin 25.5 pg (28.0-32.0); Mean Corpuscular Hgb Conc. 30.8 g/dL (32.0-36.0); Mean Corpuscular Volume 82.8 fL (80.0-100.0); Monocytes % (auto) 16.8 % (0.0-12.0); Neutrophils # (auto) 8.4 10 ^3/uL (1.6-8.6); Neutrophils % (auto) 69.5 % (37.0-80.0); Nucleated Red Blood Cells % 0.2 %; Red Blood Cells 5.13 10^6/uL (4.0-5.20); Red Cell Distribution Width 18.4 % (11.8-14.3); White Blood Cell 12.1 10^3/uL (4.4-10.8)
[2023-06-28] MEDS: dilTIAZem 25 MG/5 ML VIAL IV ONE ×2 (01:11→01:47)
[2023-06-28 01:14] LABS: Chloride 104 mmol/L (98-107); Potassium 4.2 mmol/L (3.5-5.1); Sodium 138 mmol/L (136-145)
[2023-06-28 01:15] LABS: Anion Gap 5 (5-15); Calcium 9.2 mg/dL (8.7-10.4); Carbon Dioxide 29 mmol/L (20-30)
[2023-06-28 01:20] LABS: Blood Urea Nitrogen 17 mg/dL (9-23); Glucose 127 mg/dL (74-106)
[2023-06-28 01:22] LABS: INR 1.14 (0.9-1.15); Partial Thromboplastin Time 21.3 SEC (24.5-34.5)
[2023-06-28 02:37] LABS: Urine Bacteria None Seen /hpf (None Seen)
[2023-06-28 02:57] LABS: Urine Blood Negative /uL (Negative); Urine Clarity Turbid (Clear); Urine Color Yellow (Yellow); Urine Hyaline Cast MANY /lpf (0 - 2); Urine Mucus FEW (None Seen); Urine Protein, UAD 1+ (Negative); Urine Specific Gravity 1.025 (1.001-1.035); Urine Urobilinogen 4 mg/dL (Negative); Urine WBC 42 /hpf (0 - 5); Urine pH 5.5 (5.0-9.0)
[2023-06-28] MEDS: dilTIAZem 125mg/125ml BAG KIT 125 ML IV ONE (03:03)
[2023-06-28] MEDS: FUROSEMIDE 100 MG/10ML VIAL IV ONE (03:12)
[2023-06-28] MEDS: levoFLOXacin 750MG 150 ML IV ONE (03:33)
[2023-06-28] MEDS: AMIODARONE BOLUS KIT 100 ML IV ONE (05:10)
[2023-06-28] MEDS: methylPREDNISolone SOD SUCC 125 MG/2 ML VL IV ONE (05:11)
[2023-06-28] MEDS: LEVALBUTEROL HCL 1.25 MG/3 ML NEB NEB ONE (05:17)
[2023-06-28] MEDS: IPRATROPIUM BROM 0.5 MG/2.5ML INH SOL NEB ONE (05:17)
[2023-06-28] MEDS: AMIODARONE 450mg/250ml AE 250 ML IV SCH ×2 (05:36→11:30)
[2023-06-28] MEDS ORDERED: DEXTROSE (50%) 50ML SYRG IV PRN (06:00)
[2023-06-28] MEDS ORDERED: NITROGLYCERIN 0.4 MG SL TAB SL PRN (06:00)
[2023-06-28] MEDS: ACCU-CHEK COMFORT CURVE STRIP VI SCH (06:00)
[2023-06-28] MEDS ORDERED: MORPHINE SULFATE INJ 2 MG/ml SYRG IV PRN (06:00)
[2023-06-28] MEDS ORDERED: ONDANSETRON HCL 4 MG/2 ML VIAL IV PRN (06:00)
[2023-06-28] MEDS ORDERED: ACETAMINOPHEN 325 MG TAB PO PRN (06:00)
[2023-06-28] MEDS ORDERED: ALBUTEROL SULF 2.5 MG/0.5ML(0.5%) NEB SOLN NEB PRN (06:00)
[2023-06-28 06:40] VITALS: BP 170/80; PULSE 122; RESP 24; TEMP 97.2; O2SAT 95
[2023-06-28] MEDS: InsuLIN REG 1unit/0.01ml Soln (100units/ml) SC SCH (06:41)
[2023-06-28 08:00] VITALS: PULSE 124; RESP 33; O2SAT 95
[2023-06-28 11:04] VITALS: BP 117/96; PULSE 135; RESP 25; O2SAT 87
[2023-06-28] MEDS: SACUBITRIL-VALSARTAN 24mg/26mg TAB PO SCH (11:12)
[2023-06-28] MEDS: CARVEDILOL 3.125 MG TAB PO SCH (11:13)
[2023-06-28] MEDS: LISINOPRIL 20 MG TAB PO SCH (11:13)
[2023-06-28] MEDS: APIXABAN 5 MG TAB PO SCH (11:14)
[2023-06-28] MEDS ORDERED: FUROSEMIDE 20 MG/2 ML VIAL IV SCH (18:00)
[2023-06-28] MEDS ORDERED: ATORVASTATIN 20 MG TAB PO SCH (22:00)
== END 2023-06-28 06:11 | disposition home or self-care (01) ==
LOC: EDBD 00:38 → ER 00:38
DX: J18.9 Pneumonia, unspecified organism (principal); N39.0 Urinary tract infection, site not specified; I48.0 Paroxysmal atrial fibrillation; R79.89 Other specified abnormal findings of blood chemistry; I11.0 Hypertensive heart disease with heart failure; I50.9 Heart failure, unspecified; J44.9 Chronic obstructive pulmonary disease, unspecified; E11.9 Type 2 diabetes mellitus without complications; Z79.4 Long term (current) use of insulin; Z79.2 Long term (current) use of antibiotics; Z79.899 Other long term (current) drug therapy; Z88.0 Allergy status to penicillin; Z88.2 Allergy status to sulfonamides
CPT/HCPCS: 36415; 71045; 80048; 81001; 82962; 83605; 83880; 84484; 85025; 85610; 85730; 87040; 93005; 94640; 96365; 96366; 96367; 96368; 96372; 96375; 96376; 99291; J0282; J1815; J1940; J1956; J2919; J7612; J7644